=== PATIENT | male | born 1970 | race Two or more races ===

== ENCOUNTER 2020-08-19 13:19 | Outpatient (REF) | payer OTHER, SELFPAY ==
--- NOTE | 2020-08-19 13:27 | US_ITS ---
EXAMINATION: US VENOUS ULTRASOUND WITH DOPPLER LOWER EXTREMITY, LEFT CLINICAL INFORMATION: Left leg pain and swelling. Evaluate for DVT. COMPARISON: None TECHNIQUE: Ultrasound of the deep veins is performed from the hip to the calf with compression sonography and color and pulse Doppler assessment. Spectral analysis with color-flow imaging is performed. FINDINGS: There is normal venous compression and respiratory variation and augmented flow. The visualized common femoral vein, superficial femoral vein, profunda femoral vein, popliteal vein, and the trifurcation region shows no evidence of deep venous thrombosis. There is no significant popliteal fossa cyst. If the patient's symptoms persist, followup ultrasound in 5 days 7 days might be of value to exclude proximal propagation from a non-visualized calf vein. US/US venous duplex LE LT IMPRESSION: No DVT demonstrated in the left lower extremity.
== END 2020-08-19 13:20 | disposition home or self-care (01) ==
LOC: HO.HMGCX 13:19
DX: R60.0 Localized edema (principal); M79.605 Pain in left leg
CPT/HCPCS: 93971

== ENCOUNTER 2021-01-03 14:19 | Outpatient (REF) | payer OTHER, SELFPAY ==
--- NOTE | ~2021-01-03 | XR_ITS ---
EXAMINATION: XR CHEST CLINICAL INFORMATION: CHF COMPARISON: 09/22/2019 TECHNIQUE: 2 views of the chest were obtained. FINDINGS: The lungs are well expanded. There is no focal consolidation, edema, or effusion. No pneumothorax. The cardiomediastinal silhouette is prominent. No acute osseous abnormality. XR/XR chest 2V IMPRESSION: Prominent cardiac silhouette. Clear lungs.
[2021-01-03 16:02] LABS: MANUAL DIFF FLAG NO
[2021-01-03 16:08] LABS: Basophils Percent Auto 0.5 % (0-2); Eosinophils Absolute Auto 0.4 X10*3/uL (0.0-0.4); Hematocrit 49.4 % (42-52); Hemoglobin 16.5 g/dl (14.0-18.0); Imm Gran Abs Auto 0.02 X10*3/uL (0.00-0.03); Imm Gran Pct Auto 0.3 % (0.0-0.4); Lymphocytes Absolute Auto 1.7 X10*3/uL (1.2-4.9); Mean Corpuscular HGB Conc 33.4 g/dl (31.0-36.0); Mean Corpuscular Volume 92.9 fL (80-98); Mean Platelet Volume 11.2 fL (9.4-12.4); Monocytes Absolute Auto 0.6 X10*3/uL (0.1-1.2); Monocytes Percent Auto 8.2 % (2-11); Neutrophils Absolute Auto 4.6 X10*3/uL (2.0-8.3); Platelet Count 247 X10*3/uL (160-400); Red Blood Count 5.32 X10*6/uL (4.60-5.80); Red Cell Distribution Width 13.2 % (11.0-16.0); White Blood Count 7.3 X10*3/uL (4.8-10.8)
[2021-01-03 16:16] LABS: Glucose Urine UA NEG (NEG); Leukocyte Esterase Urine NEG (NEG); Nitrite Urine NEG (NEG); PH 6.5 (5.0-8.0); Specific Gravity - Urine 1.025 (1.005-1.025); Urine Blood NEG (NEG); Urine Ketones NEG (NEG); Urine Protein 2+ MG/DL (NEG-TRACE)
[2021-01-03 16:21] LABS: Appearance Urine CLEAR; Color Urine AMBER
[2021-01-03 16:28] LABS: Alanine Aminotransferase 22 U/L (0-40); Albumin Level 3.2 g/dL (3.5-5.0); Alkaline Phosphatase 95 U/L (39-117); Anion Gap 11 (12-20); Aspartate Amino Transferase 17 U/L (5-37); B Type Natriuretic Peptide 893 pg/mL (<100); Bilirubin Total 2.1 mg/dL (0.0-1.0); Blood Urea Nitrogen 25 mg/dL (9-16); Calcium 8.5 mg/dL (8.4-10.2); Carbon Dioxide 32 mmol/L (22-29); Chloride 100 mmol/L (96-108); Cholesterol 162 mg/dL; Estimated Glomerular Filt Rate 59; Glucose Random 108 mg/dL (60-115); Potassium 3.7 mmol/L (3.3-5.1); Sodium 139 mmol/L (135-145); Total Protein 5.8 g/dL (6.5-8.0)
[2021-01-03 16:33] LABS: Uric Acid 11.6 mg/dL (3.4-7.0)
[2021-01-03 16:47] LABS: Free T4 (Free Thyroxine) 0.92 ng/dL (0.71-1.85); Prostate Specific Antigen 0.35 ng/mL (<0.05-4.0)
[2021-01-03 18:21] LABS: RBC Urine 0-2 /HPF (0); Squamous Epithelial Cell Urine TRACE /LPF
[2021-01-04 13:01] LABS: CT PCR NOT DETECTED (Not Detect.); NG PCR NOT DETECTED (Not Detect.)
== END 2021-01-03 14:20 | disposition home or self-care (01) ==
LOC: HO.LAB 14:19
PROVIDERS: PCP Internal Medicine; Visit Provider Internal Medicine
DX: I10 Essential (primary) hypertension (principal); R31.9 Hematuria, unspecified; I50.9 Heart failure, unspecified; M10.9 Gout, unspecified; I48.91 Unspecified atrial fibrillation; Z12.5 Encounter for screening for malignant neoplasm of prostate
CPT/HCPCS: 71046; 80053; 81001; 82465; 83880; 84153; 84439; 84443; 84550; 85025; 87086; 87491; 87591

== ENCOUNTER → 2021-02-25 08:33 | Outpatient (REF) | payer OTHER, SELFPAY ==
--- NOTE | 2021-02-25 08:30 | CA_ITS ---
Transthoracic Echocardiogram Patient (Last, First, Middle): Dom Yoder, Gender: Male Date of : 1970 Age: 50 Procedure Date: 02/25/2021 Procedure Type: Transthoracic Echocardiogram Location: OP Height: 167.64 cm Weight: 97.98 kg BSA: 2.07 m2 Heart Rate: bpm BP: 148 / 110 mmHg Barrel Waterer: ADRIANA Referring MD: Mj Linder MD Symptoms: I42.9 CMP Study Quality: Fair ECG Rhythm: Sinus Conclusions: - The left ventricular systolic function is severely decreased. The visually estimated ejection fraction is between 10-15%. - Evidence suggests grade II (moderate) diastolic dysfunction. - There is moderate mitral valve regurgitation. - There is mild to moderate tricuspid valve regurgitation. - Moderate pulmonary hypertension is present. - The inferior vena cava is dilated and does not collapse with inspiration. Findings Left Ventricle Severely increased left ventricular cavity size. There is normal left ventricular wall thickness. The left ventricular systolic function is severely decreased. The visually estimated ejection fraction is between 10 15%. The calculated ejection fraction is 15% by biplane method. E/E prime ratio is >15, consistent with elevated filling pressures. Evidence suggests grade II (moderate) diastolic dysfunction. Right Ventricle Normal right ventricular cavity size and systolic function. Atria Both atria are normal in size. Aortic Valve There is a normal trileaflet aortic valve. There is no aortic valve stenosis. There is no aortic valve regurgitation. Mitral Valve There is mild mitral annular calcification. There is moderate mitral valve regurgitation. There is no mitral valve stenosis. Pulmonic Valve The pulmonic valve was not well visualized. Tricuspid Valve Normal tricuspid valve structure. There is mild to moderate tricuspid valve regurgitation. The right ventricular systolic pressure is 60 mmHg. Moderate pulmonary hypertension is present. Great Vessels There is mild dilatation of the ascending aorta measuring 3.70 cm. Venous The inferior vena cava is dilated and does not collapse with inspiration. Pericardium/Pleural There is no evidence of pericardial effusion. Prior Study Comparison Changes noted compared to prior study dated: 08/28/2018. LVEF further diminished. Progression of valvular dysfunction. Measurements 2D Linear Measurements IVSd: 0.75 0.6-0.9/0.6-1.0 cm LVIDd: 6.97 3.9-5.3/4.2-5.9 cm LVIDd Index: 3.37 2.4-3.2/2.2-3.1 cm/m2 LVIDs: 5.67 2.0-3.6 cm LVPWd: 0.73 0.7-1.1 cm Ao Root: 3.90 2.1-3.5 cm LA Diam: 3.20 2.7-3.8/3.0-4.0 cm LAIDs Index: 1.55 1.5-2.3 cm/m2 LV Mass: 276.00 67-162/88-224 g LV Mass Index: 133.33 43-95/49-115 g/m2 LVOT Diam: 2.20 3.0+(-)1.3 cm 2D Systolic Function EF 4C: 14.00 >55% EF 2C: 15.50 >55% EF BiP: 14.50 >55% Mitral Valve MV Pk E: 0.90 MV PK A: 0.44 MV Decel Time: 119.00 E/A: 2.10 E'Lateral: 8.33 E'Medial: 2.85 E/E' Med: 31.70 E/E' Lat: 10.90 PHT: 35.00 MVA PHT: 6.29 Decel [place]: 7.61 Aortic Valve AoV Pk Sanjay: 0.83 AoV Mn Sanjay: 0.65 AoV VTI: 0.13 AoV Pk Grad: 3.00 Aov Mn Grad: 2.00 PAU Cont.VTI: 2.13 LVOT LVOT Pk Sanjay: 0.54 LVOT Mn Sanjay: 0.36 LVOT VTI: 0.07 LVOT Pk Grad: 1.00 LVOT Mn Grad: 1.00 LVOT Diam: 2.20 LVOT Area: 3.80 Diastolic Function MV Pk E: 0.90 MV Pk A: 0.44 E/A: 2.10 E'Medial: 2.85 E/E' Med: 31.70 E' Laterial: 8.33 E/E' Lat: 10.90 Tricuspid Valve TR Pk Sanjay: 3.35 TR Pk Grad: 45.00 RA Press: 15.00 RVSP: 60.00 Great Vessels Aorta Ao Root-2D: 3.90 2.0-3.7 cm Ao Asc: 3.70 2.1-3.4 cm Ao Arch: 3.30 Pulmonary Valve PV Pk Sanjay: 0.66 Peak PV Grad: 2.00 Updated in Other Vendor System with Status of Final Chao Mcdonough MD electronically signed on 02/27/2021 1:16:38 PM with status of Final
== END ==
LOC: HO.CARD 08:33
PROVIDERS: Visit Provider Internal Medicine
DX: I42.9 Cardiomyopathy, unspecified (principal)
CPT/HCPCS: 93306

== ENCOUNTER 2021-03-24 09:04 | Outpatient (REF) | payer OTHER, SELFPAY ==
[2021-03-24 10:56] LABS: B Type Natriuretic Peptide 986 pg/mL (<100)
[2021-03-24 11:04] LABS: Alanine Aminotransferase 18 U/L (0-40); Albumin Level 3.8 g/dL (3.5-5.0); Alkaline Phosphatase 125 U/L (39-117); Anion Gap 13 (12-20); Aspartate Amino Transferase 17 U/L (5-37); Bilirubin Total 1.7 mg/dL (0.0-1.0); Blood Urea Nitrogen 20 mg/dL (9-16); C Reactive Protein 0.92 mg/dL (< or = 0.50); Calcium 9.2 mg/dL (8.4-10.2); Carbon Dioxide 24 mmol/L (22-29); Chloride 106 mmol/L (96-108); Estimated Glomerular Filt Rate > 60; Glucose Random 100 mg/dL (60-115); Potassium 4.1 mmol/L (3.3-5.1); Sodium 139 mmol/L (135-145); Total Protein 6.8 g/dL (6.5-8.0)
[2021-03-24 11:19] LABS: Uric Acid 9.9 mg/dL (3.4-7.0)
== END 2021-03-24 09:05 | disposition home or self-care (01) ==
LOC: HO.LAB 09:04
PROVIDERS: PCP Internal Medicine; Visit Provider Internal Medicine
DX: I10 Essential (primary) hypertension (principal); I42.9 Cardiomyopathy, unspecified
CPT/HCPCS: 36415; 80053; 83880; 84550; 86140

== ENCOUNTER 2021-04-26 16:20 | Inpatient (IN) | payer OTHER, SELFPAY ==
--- NOTE | ~2021-04-26 | XR_ITS ---
EXAMINATION: XR CHEST CLINICAL INFORMATION: Dyspnea COMPARISON: Previous chest x-ray most recent December 2020 TECHNIQUE: Frontal view of the chest was obtained. FINDINGS: The cardiac silhouette is enlarged but stable. Hilar and mediastinal contours are unremarkable. The lungs are clear. There is no pleural effusion. There are degenerative changes of the spine. XR/XR chest 1V IMPRESSION: Stable enlargement of the cardiac silhouette. No evidence for acute disease in the chest.
[2021-04-26 16:22] VITALS: BP 149/96; PULSE 93; RESP 18; O2SAT 94; BMI 36.1
--- NOTE | 2021-04-26 16:29 | ECG_ITS ---
Test Reason : DYSPNEA Blood Pressure : / mmHG Vent. Rate : 085 BPM Atrial Rate : 085 BPM P-R Int : 162 ms QRS Dur : 100 ms QT Int : 348 ms P-R-T Axes : 058 -37 147 degrees QTc Int : 414 ms Normal sinus rhythm Left axis deviation Left ventricular hypertrophy with repolizeration abnormality. Abnormal ECG No previous ECGs available Referred By: Generic ED Physician Electronically Signed By:EMMA SPARROW
[2021-04-26 16:45] LABS: MANUAL DIFF FLAG NO
[2021-04-26 16:49] LABS: Basophils Percent Auto 0.4 % (0-2); Eosinophils Absolute Auto 0.3 X10*3/uL (0.0-0.4); Eosinophils Percent Auto 4.2 % (0-4); Hematocrit 44.8 % (42-52); Hemoglobin 15.2 g/dl (14.0-18.0); Imm Gran Abs Auto 0.02 X10*3/uL (0.00-0.03); Imm Gran Pct Auto 0.3 % (0.0-0.4); Lymphocytes Absolute Auto 1.5 X10*3/uL (1.2-4.9); Lymphocytes Percent Auto 20.5 % (20-40); Mean Corpuscular HGB Conc 33.9 g/dl (31.0-36.0); Mean Corpuscular Hemoglobin 30.8 pg (27.0-33.0); Mean Corpuscular Volume 90.7 fL (80-98); Mean Platelet Volume 10.9 fL (9.4-12.4); Monocytes Absolute Auto 0.5 X10*3/uL (0.1-1.2); Monocytes Percent Auto 7.5 % (2-11); Neutrophils Absolute Auto 4.8 X10*3/uL (2.0-8.3); Neutrophils Percent Auto 67.1 % (45-73); Platelet Count 217 X10*3/uL (160-400); Red Blood Count 4.94 X10*6/uL (4.60-5.80); White Blood Count 7.2 X10*3/uL (4.8-10.8)
[2021-04-26 17:10] LABS: Anion Gap 14 (12-20); Blood Urea Nitrogen 37 mg/dL (9-16); Calcium 9.1 mg/dL (8.4-10.2); Carbon Dioxide 22 mmol/L (22-29); Chloride 109 mmol/L (96-108); Creatinine Clr Calc Pharmacy 59.1; Estimated Glomerular Filt Rate 44; Glucose Random 114 mg/dL (60-115); Potassium 4.1 mmol/L (3.3-5.1); Sodium 141 mmol/L (135-145)
[2021-04-26 17:16] LABS: B Type Natriuretic Peptide 3442 pg/mL (<100); Troponin-I High Sensitivity 12.1 ng/L (<3.5-35.0)
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
--- NOTE | 2021-04-26 21:03 | PHA.MEDREC ---
Pharmacy Consult ? Medication Reconciliation Pharmacy has completed the medication reconciliation.
[2021-04-26 22:13] LABS: Alanine Aminotransferase 16 U/L (0-40); Albumin Level 3.5 g/dL (3.5-5.0); Alkaline Phosphatase 119 U/L (39-117); Aspartate Amino Transferase 19 U/L (5-37); Bilirubin Direct 1.6 mg/dL (0.0-0.5); Bilirubin Total 2.9 mg/dL (0.0-1.0); Total Protein 6.3 g/dL (6.5-8.0)
[2021-04-26 22:45] VITALS: BP 143/103; PULSE 75; RESP 16; O2SAT 97
[2021-04-26] MEDS: Furosemide 100 MG/10 ML VIAL 60 MG IVPUSH (22:57)
[2021-04-26 23:33] LABS: COVID-19 Test Negative (Negative)
[2021-04-26 23:36] LABS: Digoxin 0.6 ng/mL (0.8-2.0)
[2021-04-27] VITALS (9 sets, daily range): BP systolic 123–155; BP diastolic 78–99; PULSE 63–92; RESP 16–20; TEMP 36–36.8; O2SAT 94–97; BMI 35.2
--- NOTE | 2021-04-27 00:37 | PM.IMHP ---
History of Present Illness Date of Service: 04/26/21 Chief Complaint: Shortness of breath and leg swelling This is a 50-year-old male with past medical history of heart failure with an ejection fraction of 10%, and history of gout who presents to the hospital for leg swelling and shortness of breath. Patient was seen by his PCP today who sent him to the ED. Patient reports that his leg swelling started about 3-4 days ago, associated with shortness of breath, no cough, no sputum production, no fever or chills, no chest pain. he has some orthopnea with no PND. Reports no sick contacts or recent travel. He has some palpitations that are infrequent. No headache, change in vision, no abdominal pain nausea or vomiting, no diarrhea constipation, no urinary symptoms and no numbness tingling or weakness. Also noted to have gained 8 lb within few weeks. Patient reports compliance with his Lasix of 40 mg daily, he reports compliance with low-sodium diet. On arrival to the ED patient hemodynamically stable with a slightly elevated blood pressure otherwise no significant abnormality Labs unremarkable except for chloride of 109, BUN of 37, creatinine of 1.65 with a baseline around 1.1, total bili of 2.9, with direct bili of 1.6 (chronically elevated), BNP of 3442, digoxin level of 0.6 Chest x-ray shows stable enlargement of the cardiac silhouette with no evidence for acute disease Past medical history as below and confirmed with patient Review of Systems Review of Systems: Yes all other systems are reviewed and are negative [facility] Medical History Gout Heart failure Social History Use of substances other than those prescribed or required for medical reasons: Yes Substance Use Type: Crack/Cocaine Substance Use Frequency: Weekly Advance Directives: No Advance Directives Information Provided: No Meds Allergies Allergy/AdvReac Type Severity Reaction Status Date / Time codeine Allergy Unknown NAUSEA,VOMI Verified 04/26/21 16:22 [From TYLENOL-CODEINE #3] TING acetaminophen AdvReac Unknown nausea and Verified 04/26/21 16:22 [Tylenol-Codeine] vomiting Active Medications: Current Medications Generic Name Dose Route Start Last Admin Trade Name Freq PRN Reason Stop Dose Admin Pharmacy Consult 1 each 04/26/21 20:51 Consult Rx Perform Med Rec MISCELLANE ONCE PRN Consult order Home Medications Medication Instructions Recorded Confirmed Last Taken Type allopurinol 1 tab PO DAILY 04/26/21 04/26/21 04/26/21 History carvedilol 1 tab PO BID 04/26/21 04/26/21 04/26/21 History digoxin 1 tab PO DAILY 04/26/21 04/26/21 04/26/21 History furosemide 1 tab PO DAILY 04/26/21 04/26/21 04/26/21 History sacubitril-valsartan [Entresto] 1 tab PO BID 04/26/21 04/26/21 04/26/21 History Physical Exam Vital Signs and Narrative: Vital Signs: Last Vital Signs Pulse 75 04/26/21 22:45 Resp 16 04/26/21 22:45 BP 143/103 H 04/26/21 22:45 Pulse Ox 97 04/26/21 22:45 Body Mass Index 36.1 Const: General: cooperative and no acute distress Orientation/consciousness: patient oriented x3 Eyes: General: appearance normal, both eyes and all related structures Resp: Effort & Inspection: normal respiratory effort and able to speak in complete sentences Cardio: Rate: regular rate Rhythm: regular rhythm GI: Palpation (GI): Soft to palpation Auscultation: normal bowel sounds Skin: General skin exam: no rashes or lesions noted Neuro: General: patient oriented x3 Cognition (Neuro): normal cognition Extrem: Other: 3+ pitting edema bilaterally General: Yes normal to inspection Results Labs CBC and Chem 7: 04/26/21 16:39 04/26/21 16:39 Labs: Laboratory Results - last 24 hr 04/26/21 04/26/21 04/26/21 16:39 16:39 16:39 MCV 90.7 MCH 30.8 MCHC 33.9 RDW 14.0 Plt Count 217 MPV 10.9 Immature Gran % (Auto) 0.3 Neut % (Auto) 67.1 Lymph % (Auto) 20.5 [place] % (Auto) 7.5 Eos % (Auto) 4.2 H Baso % (Auto) 0.4 Lymph # (Auto) 1.5 [place] # (Auto) 0.5 Eos # (Auto) 0.3 Baso # (Auto) 0.0 Abs Immat Gran (auto) 0.02 Absolute Neuts (auto) 4.8 Absolute Nucleated RBC 0.000 Nucleated RBC % (auto) 0.0 Anion Gap 14 Estim Creat Clear Calc 59.1 Estimated GFR 44 Random Glucose 114 Calcium 9.1 Total Bilirubin 2.9 H Direct Bilirubin 1.6 H AST 19 ALT 16 Alkaline Phosphatase 119 H Troponin I High Sens 12.1 B-Natriuretic Peptide 3442 H Total Protein 6.3 L Albumin 3.5 Digoxin COVID-19 (SRINI) COVID-19 Clin Com 04/26/21 04/26/21 22:56 22:56 MCV MCH MCHC RDW Plt Count MPV Immature Gran % (Auto) Neut % (Auto) Lymph % (Auto) [place] % (Auto) Eos % (Auto) Baso % (Auto) Lymph # (Auto) [place] # (Auto) Eos # (Auto) Baso # (Auto) Abs Immat Gran (auto) Absolute Neuts (auto) Absolute Nucleated RBC Nucleated RBC % (auto) Anion Gap Estim Creat Clear Calc Estimated GFR Random Glucose Calcium Total Bilirubin Direct Bilirubin AST ALT Alkaline Phosphatase Troponin I High Sens B-Natriuretic Peptide Total Protein Albumin Digoxin 0.6 L COVID-19 (SRINI) Negative COVID-19 Clin Com See Note Imaging Radiologist's Impressions: Impressions Chest X-Ray 04/26/21 16:29 IMPRESSION: Stable enlargement of the cardiac silhouette. No evidence for acute disease in the chest. Assessment and Plan (1) Acute congestive heart failure with left ventricular diastolic dysfunction: Status: Acute (2) CYNTHIA (acute kidney injury): Status: Acute This is a 50-year-old male with past medical history of heart failure presents to hospital with lower extremity edema as well as dyspnea # acute CHF exacerbation - has a history of low ejection fraction of 10% seen on echo done in January of 2021 - has dyspnea, orthopnea, lower extremity edema, and elevated BNP - troponin at significantly elevated and he has no chest pain with no EKG changes - will start him on IV Lasix 40 b.i.d., daily weight, strict I&O, low-sodium diet - cardiology consulted # CYNTHIA - most likely secondary to heart failure - start on Lasix - follow BMP # hypertension - slightly elevated - continue carvedilol And Entresto # gout - given CYNTHIA will hold off on allopurinol DVT prophylaxis: lovenox Quality Stroke Does the patient have a stroke diagnosis?: No VTE Prior VTE?: No VTE Risk Level:: Medical - moderate - high VTE Device Contraindication: Treatment Not Indicated VTE Drug Contraindication: N/A - Med Ordered
[2021-04-27] MEDS: Enoxaparin Sodium 40 MG/0.4 ML SYRINGE SUBCUT ×2 (02:51→21:22)
[2021-04-27] MEDS: Furosemide 40 MG/4 ML VIAL IVPUSH ×2 (02:51→13:55)
[2021-04-27] MEDS: 0.9 % Sodium Chloride Flush 3 ML SYRINGE IVFLUSH ×4 (02:51→23:52)
--- NOTE | 2021-04-27 06:13 | PC.NURSE ---
LATE ENTRY: Hospital-wide system downtime between 3am-6am. During this time, patient ambulated with slow steady gait to ED, voided 2,000ml urine. Patient able to make needs known and use call rodriges. Requested and given ham sandwich and racquel luciano. Awaiting admission bed. Will continue to monitor.
[2021-04-27 06:22] LABS: MANUAL DIFF FLAG NO
[2021-04-27 06:28] LABS: Appearance Urine CLEAR; Color Urine YELLOW; Glucose Urine UA NEG (NEG); Leukocyte Esterase Urine NEG (NEG); Nitrite Urine NEG (NEG); Urine Blood NEG (NEG); Urine Ketones NEG (NEG); Urine Protein TRACE MG/DL (NEG-TRACE)
[2021-04-27 06:34] LABS: Basophils Percent Auto 0.4 % (0-2); Eosinophils Absolute Auto 0.5 X10*3/uL (0.0-0.4); Eosinophils Percent Auto 6.7 % (0-4); Hematocrit 48.3 % (42-52); Hemoglobin 15.7 g/dl (14.0-18.0); Imm Gran Abs Auto 0.03 X10*3/uL (0.00-0.03); Imm Gran Pct Auto 0.4 % (0.0-0.4); Lymphocytes Absolute Auto 1.3 X10*3/uL (1.2-4.9); Lymphocytes Percent Auto 17.3 % (20-40); Mean Corpuscular HGB Conc 32.5 g/dl (31.0-36.0); Mean Corpuscular Volume 92.2 fL (80-98); Mean Platelet Volume 11.2 fL (9.4-12.4); Monocytes Absolute Auto 0.5 X10*3/uL (0.1-1.2); Monocytes Percent Auto 7.1 % (2-11); Neutrophils Percent Auto 68.1 % (45-73); Platelet Count 232 X10*3/uL (160-400); Red Blood Count 5.24 X10*6/uL (4.60-5.80); Red Cell Distribution Width 13.9 % (11.0-16.0); White Blood Count 7.3 X10*3/uL (4.8-10.8)
[2021-04-27 06:57] LABS: Anion Gap 13 (12-20); Blood Urea Nitrogen 36 mg/dL (9-16); Calcium 9.5 mg/dL (8.4-10.2); Carbon Dioxide 31 mmol/L (22-29); Chloride 102 mmol/L (96-108); Creatinine Clr Calc Pharmacy 61.7; Estimated Glomerular Filt Rate 46; Glucose Random 111 mg/dL (60-115); Potassium 3.8 mmol/L (3.3-5.1); Sodium 142 mmol/L (135-145)
--- NOTE | 2021-04-27 09:14 | MHC.CM.PN ---
CM met with Patient at bedside. Patient lives in a duplex with his and he is functionally independent and working. Home is the goal for dc and CM has initiated and will follow for dc planning. PCP is Dr. Mj Linder.
[2021-04-27] MEDS: carvediloL 12.5 MG TABLET PO ×2 (09:35→21:22)
[2021-04-27] MEDS: Sacubitril/Valsartan 49/51 1 TAB TABLET PO ×2 (09:35→21:22)
--- NOTE | 2021-04-27 10:32 | P.CONCA_ITS ---
History of Present Illness History of Present Illness Date of Service: 04/27/21 Consult reason: congestive heart failure Chief complaint: CHF Exacerbation, Leticia Narrative: This is a cardiology consultation regarding congestive heart failure. He has the known ejection fraction of about 10%. He has been admitted to the hospital with leg swelling and shortness of breath. He was apparently seen by his PCP sent him to the ER. He started having some some swelling in his legs few days back. He has also been having shortness of breath. However he states that his shortness of breath is actually chronic and not much change recently. No anginal-type symptoms or palpitations or syncopal episodes. He is on a reasonable medical regimen at home including Coreg, Entresto, Lasix and digoxin and he states that he actually takes all his medications without any issues. Unfortunately, he does do drugs. He has history of cocaine use and he also binge drinks over the weekend. Review of Systems Review of Systems: Yes all other systems are reviewed and are negative Cardiovascular: Cardiovascular: Reports as per HPI, Reports no additional cardiovascular complaints, Denies acrocyanosis, Denies cool extremities, Denies painful fingertips, Denies chest pain, Denies chest pain at rest, Denies diaphoresis, Denies syncope, Denies irregular heart rhythm, Denies claudication, Reports leg edema, Denies lightheadedness, Denies palpitations and Reports dyspnea Respiratory: Respiratory: Reports dyspnea Neurologic: Denies syncope Endocrine: Endocrine: Denies palpitations PMF Past Medical History Medical History Gout Heart failure Family History Pertinent family history: Mother and father have diabetes. Social History Social History Household Members: Spouse Housing: House Do you presently have visiting nurse or other home services: No Patient Tobacco Use Status: Former Tobacco user Use of substances other than those prescribed or required for medical reasons: No Substance Use Type: Crack/Cocaine Substance Use Frequency: Weekly Have you been hit, kicked, punched, or otherwise hurt by someone within the past year? If so, by whom?: No Do you feel safe in your current relationship?: Yes Is there a partner from a previous relationship who is making you feel unsafe now?: No Are you made to feel afraid or neglected: No Advance Directives: No Advance Directives Information Provided: No Do you have thoughts of harming others: None Recently lost weight without trying: No Nutrition Risks: No Nutritional Risk service: No Current occupational status: employed Meds Allergies Allergy/AdvReac Type Severity Reaction Status Date / Time codeine Allergy Unknown NAUSEA,VOMI Verified 04/26/21 16:22 [From TYLENOL-CODEINE #3] TING acetaminophen AdvReac Unknown nausea and Verified 04/26/21 16:22 [Tylenol-Codeine] vomiting Active Medications: Current Medications Generic Name Dose Route Start Last Admin Trade Name Freq PRN Reason Stop Dose Admin Acetaminophen 650 mg 04/27/21 01:26 Acetaminophen 325 Mg Tablet PO Q6H PRN Pain, Mild (Pain Scale 1-3) Carvedilol 12.5 mg 04/27/21 01:26 04/27/21 09:35 Carvedilol 12.5 Mg Tablet PO 12.5 mg BID [facility] Administration Protocol Docusate Sodium 100 mg 04/27/21 01:26 Docusate Sodium 100 Mg Capsule PO DAILY PRN Constipation Enoxaparin Sodium 40 mg 04/27/21 01:26 04/27/21 02:51 Enoxaparin Sodium 40 Mg/0.4 Ml Syringe SUBCUT 40 mg BEDTIME [facility]A Administration Furosemide 40 mg 04/27/21 02:00 04/27/21 02:51 Furosemide 40 Mg/4 Ml Vial IVPUSH 40 mg Q12H [facility] Administration Protocol Ondansetron HCl 4 mg 04/27/21 01:26 Ondansetron Hcl 4 Mg/2 Ml Vial IVPUSH Q8H PRN Nausea and Vomiting Pharmacy Consult 1 each 04/26/21 20:51 Consult Rx Perform Med Rec MISCELLANE ONCE PRN Consult order Sacubitril/Valsartan 1 tab 04/27/21 01:26 04/27/21 09:35 Sacubitril/Valsartan 49/51 1 Tab Tablet PO 1 tab BID [facility] Administration Protocol Sodium Chloride 3 ml 04/27/21 01:26 04/27/21 09:35 0.9 % Sodium Chloride Flush 3 Ml Syringe IVFLUSH 3 ml QSHIFT [facility]A Administration Home Medications Medication Instructions Recorded Confirmed Last Taken Type allopurinol 300 mg tablet 1 tab PO DAILY 04/26/21 04/26/21 04/26/21 History carvedilol 12.5 mg tablet 1 tab PO BID 04/26/21 04/26/21 04/26/21 History digoxin 250 mcg (0.25 mg) tablet 1 tab PO DAILY 04/26/21 04/26/21 04/26/21 History furosemide 40 mg tablet 1 tab PO DAILY 04/26/21 04/26/21 04/26/21 History sacubitril 49 mg-valsartan 51 mg 1 tab PO BID 04/26/21 04/26/21 04/26/21 History tablet (Entresto) Physical Exam Vital Signs: Vital Signs: Last Vital Signs Temp 97.6 F 04/27/21 07:49 Pulse 66 04/27/21 09:35 Resp 18 04/27/21 07:49 BP 155/99 H 04/27/21 09:35 Pulse Ox 97 04/27/21 07:49 Body Mass Index 35.2 Const: General: cooperative and no acute distress HENMT: Other: Unremarkable Neck: Neck: Yes normal visual inspection Chest: Chest palpation & inspection: normal inspection of the chest Resp: Auscultation: clear to auscultation bilaterally, no crackles and no wheezes Cardio: Jugular venous distension: no JVD Palpation: normal PMI Heart sounds: S1 normal heart sound present, S2 normal heart sound present, no gallops, no murmurs and no rubs GI: Palpation (GI): Soft to palpation Back/Spine/Pelvis: Other: unremarkable Skin: General skin exam: no rashes or lesions noted Neuro: Cranial nerves: Yes Other cranial nerve findings present Extrem: General: Yes edema (1-2+ bilateral edema) Psych: Mental Status: other Results Labs and Meds Result diagrams: 04/27/21 05:33 04/27/21 05:53 Lab results: Laboratory Results - last 24 hr 04/26/21 04/26/21 04/26/21 16:39 16:39 16:39 WBC 7.2 RBC 4.94 Hgb 15.2 Hct 44.8 MCV 90.7 MCH 30.8 MCHC 33.9 RDW 14.0 Plt Count 217 MPV 10.9 Immature Gran % (Auto) 0.3 Neut % (Auto) 67.1 Lymph % (Auto) 20.5 [place] % (Auto) 7.5 Eos % (Auto) 4.2 H Baso % (Auto) 0.4 Lymph # (Auto) 1.5 [place] # (Auto) 0.5 Eos # (Auto) 0.3 Baso # (Auto) 0.0 Abs Immat Gran (auto) 0.02 Absolute Neuts (auto) 4.8 Absolute Nucleated RBC 0.000 Nucleated RBC % (auto) 0.0 Sodium 141 Potassium 4.1 Chloride 109 H Carbon Dioxide 22 Anion Gap 14 BUN 37 H D Creatinine 1.65 H Estim Creat Clear Calc 59.1 Estimated GFR 44 Random Glucose 114 Calcium 9.1 Total Bilirubin 2.9 H Direct Bilirubin 1.6 H AST 19 ALT 16 Alkaline Phosphatase 119 H Troponin I High Sens 12.1 B-Natriuretic Peptide 3442 H Total Protein 6.3 L Albumin 3.5 Urine Color Urine Appearance Urine pH Ur Specific [place] Urine Protein Urine Glucose (UA) Urine Ketones Urine Blood Urine Nitrite Ur Leukocyte Esterase Digoxin COVID-19 ([facility]INI) COVID-19 Clin Com 04/26/21 04/26/21 04/27/21 22:56 22:56 03:04 WBC RBC Hgb Hct MCV MCH MCHC RDW Plt Count MPV Immature Gran % (Auto) Neut % (Auto) Lymph % (Auto) [place] % (Auto) Eos % (Auto) Baso % (Auto) Lymph # (Auto) [place] # (Auto) Eos # (Auto) Baso # (Auto) Abs Immat Gran (auto) Absolute Neuts (auto) Absolute Nucleated RBC Nucleated RBC % (auto) Sodium Potassium Chloride Carbon Dioxide Anion Gap BUN Creatinine Estim Creat Clear Calc Estimated GFR Random Glucose Calcium Total Bilirubin Direct Bilirubin AST ALT Alkaline Phosphatase Troponin I High Sens B-Natriuretic Peptide Total Protein Albumin Urine Color YELLOW Urine Appearance CLEAR Urine pH 6.0 Ur Specific [place] 1.010 Urine Protein TRACE Urine Glucose (UA) NEG Urine Ketones NEG Urine Blood NEG Urine Nitrite NEG Ur Leukocyte Esterase NEG Digoxin 0.6 L COVID-19 (SRINI) Negative COVID-19 Clin Com See Note 04/27/21 04/27/21 05:33 05:53 WBC 7.3 RBC 5.24 Hgb 15.7 Hct 48.3 MCV 92.2 MCH 30.0 MCHC 32.5 RDW 13.9 Plt Count 232 MPV 11.2 Immature Gran % (Auto) 0.4 Neut % (Auto) 68.1 Lymph % (Auto) 17.3 L [place] % (Auto) 7.1 Eos % (Auto) 6.7 H Baso % (Auto) 0.4 Lymph # (Auto) 1.3 [place] # (Auto) 0.5 Eos # (Auto) 0.5 H Baso # (Auto) 0.0 Abs Immat Gran (auto) 0.03 Absolute Neuts (auto) 5.0 Absolute Nucleated RBC 0.000 Nucleated RBC % (auto) 0.0 Sodium 142 Potassium 3.8 Chloride 102 Carbon Dioxide 31 H Anion Gap 13 BUN 36 H Creatinine 1.58 H Estim Creat Clear Calc 61.7 Estimated GFR 46 Random Glucose 111 Calcium 9.5 Total Bilirubin Direct Bilirubin AST ALT Alkaline Phosphatase Troponin I High Sens B-Natriuretic Peptide Total Protein Albumin Urine Color Urine Appearance Urine pH Ur Specific [place] Urine Protein Urine Glucose (UA) Urine Ketones Urine Blood Urine Nitrite Ur Leukocyte Esterase Digoxin COVID-19 ([facility]INI) COVID-19 Clin Com ECG Interpretation: EKG with sinus rhythm, 85/Min; left ventricular hypertrophy with T inversions likely from hypertension. Imaging Radiologist's impression: Impressions Chest X-Ray 04/26/21 16:29 IMPRESSION: Stable enlargement of the cardiac silhouette. No evidence for acute disease in the chest. Assessment and Plan (1) Acute on chronic systolic and diastolic heart failure, NYHA class 3: Status: Acute Based on the last echocardiogram from January 2021, LVEF 10-15%. There was moderate diastolic dysfunction. There was also moderate mitral regurgitation and moderate pulmonary hypertension. Dilated non collapsing IVC. Echocardiogram from [facility] in 2018 also showed LVEF of 15-20%. Cardiac catheterization from 2018 shows mild LAD disease but otherwise unremarkable. Etiology might be from cocaine use, alcohol, hypertension some combination. I counseled him about drug use and specifically asked symptoms stain from cocaine. Also needs to cut back and stop alcohol use. IV diuretics. Continue Coreg. On Entresto on already has renal dysfunction. Can keep on the current dose. May add Amlodipine. If compliant in office, then possibly Aldactone. Will follow. Procedures Date of Service Date of Service: 04/27/21
[2021-04-27] MEDS: amLODIPine Besylate 2.5 MG TABLET PO (11:44)
--- NOTE | 2021-04-27 15:52 | HO.PM.IMPN ---
Subjective Subjective Date of Service: 04/27/21 Interval History: The patient was seen and evaluated this morning Sitting up, feels comfortable overall Still feeling dyspnea on exertion and swelling in his legs Denies any fever, chills or chest pain No reported other overnight events. Systemic review: No fever, chills or weakness No chest pain, palpitation Dyspnea on exertion and edema No abdominal pain, nausea or vomiting No urinary symptoms No wounds Physical Exam Vital Signs: Vital Signs: Last Vital Signs Temp 97.1 F 04/27/21 15:24 Pulse 73 04/27/21 15:24 Resp 20 04/27/21 15:24 BP 131/78 04/27/21 15:24 Pulse Ox 94 04/27/21 15:24 Body Mass Index 35.2 Const: Other: Constitutional : Alert, oriented, not in distress Neck : Normal inspection, Supple Cardiovascular : RRR, S1 S2, bilateral LEs 1 lower extremity edema Respiratory : Fair bilateral air entry, fine basal crackles, wheezes or rhonchi Gastrointestinal: soft, lax, Normal bowel sounds, Non tender Skin : Warm/Dry, No rash Neurological : Alert & oriented x3, No focal deficit Objective Data Current Medications Generic Name Dose Route Start Last Admin Trade Name Freq PRN Reason Stop Dose Admin Acetaminophen 650 mg 04/27/21 01:26 Acetaminophen 325 Mg Tablet PO Q6H PRN Pain, Mild (Pain Scale 1-3) Allopurinol 300 mg 04/28/21 09:00 Allopurinol 300 Mg Tablet PO DAILY [facility] Amlodipine Besylate 2.5 mg 04/27/21 11:35 04/27/21 11:44 Amlodipine Besylate 2.5 Mg Tablet PO 2.5 mg DAILY [facility] Administration Protocol Carvedilol 12.5 mg 04/27/21 01:26 04/27/21 09:35 Carvedilol 12.5 Mg Tablet PO 12.5 mg BID MINERVA Administration Protocol Digoxin 0.25 mg 04/28/21 09:00 Digoxin 0.25 Mg Tablet PO DAILY [facility] Docusate Sodium 100 mg 04/27/21 01:26 Docusate Sodium 100 Mg Capsule PO DAILY PRN Constipation Enoxaparin Sodium 40 mg 04/27/21 01:26 04/27/21 02:51 Enoxaparin Sodium 40 Mg/0.4 Ml Syringe SUBCUT 40 mg BEDTIME [facility]ERVA Administration Furosemide 40 mg 04/27/21 02:00 04/27/21 13:55 Furosemide 40 Mg/4 Ml Vial IVPUSH 40 mg Q12H [facility] Administration Protocol Ondansetron HCl 4 mg 04/27/21 01:26 Ondansetron Hcl 4 Mg/2 Ml Vial IVPUSH Q8H PRN Nausea and Vomiting Pharmacy Consult 1 each 04/26/21 20:51 Consult Rx Perform Med Rec MISCELLANE ONCE PRN Consult order Sacubitril/Valsartan 1 tab 04/27/21 01:26 04/27/21 09:35 Sacubitril/Valsartan 49/51 1 Tab Tablet PO 1 tab BID [facility]ERVA Administration Protocol Sodium Chloride 3 ml 04/27/21 01:26 04/27/21 13:55 0.9 % Sodium Chloride Flush 3 Ml Syringe IVFLUSH 3 ml QSHIFT MINERVA Administration Labs CBC & Chem 7: 04/27/21 05:33 04/27/21 05:53 Labs: Laboratory Results - last 24 hr 04/26/21 04/26/21 04/26/21 16:39 16:39 16:39 MCV 90.7 MCH 30.8 MCHC 33.9 RDW 14.0 Plt Count 217 MPV 10.9 Immature Gran % (Auto) 0.3 Neut % (Auto) 67.1 Lymph % (Auto) 20.5 [place] % (Auto) 7.5 Eos % (Auto) 4.2 H Baso % (Auto) 0.4 Lymph # (Auto) 1.5 [place] # (Auto) 0.5 Eos # (Auto) 0.3 Baso # (Auto) 0.0 Abs Immat Gran (auto) 0.02 Absolute Neuts (auto) 4.8 Absolute Nucleated RBC 0.000 Nucleated RBC % (auto) 0.0 Anion Gap 14 Estim Creat Clear Calc 59.1 Estimated GFR 44 Random Glucose 114 Calcium 9.1 Total Bilirubin 2.9 H Direct Bilirubin 1.6 H AST 19 ALT 16 Alkaline Phosphatase 119 H Troponin I High Sens 12.1 B-Natriuretic Peptide 3442 H Total Protein 6.3 L Albumin 3.5 Urine Color Urine Appearance Urine pH Ur Specific [place] Urine Protein Urine Glucose (UA) Urine Ketones Urine Blood Urine Nitrite Ur Leukocyte Esterase Digoxin COVID-19 (SRINI) COVID-19 Clin Com 04/26/21 04/26/21 04/27/21 22:56 22:56 03:04 MCV MCH MCHC RDW Plt Count MPV Immature Gran % (Auto) Neut % (Auto) Lymph % (Auto) [place] % (Auto) Eos % (Auto) Baso % (Auto) Lymph # (Auto) [place] # (Auto) Eos # (Auto) Baso # (Auto) Abs Immat Gran (auto) Absolute Neuts (auto) Absolute Nucleated RBC Nucleated RBC % (auto) Anion Gap Estim Creat Clear Calc Estimated GFR Random Glucose Calcium Total Bilirubin Direct Bilirubin AST ALT Alkaline Phosphatase Troponin I High Sens B-Natriuretic Peptide Total Protein Albumin Urine Color YELLOW Urine Appearance CLEAR Urine pH 6.0 Ur Specific [place] 1.010 Urine Protein TRACE Urine Glucose (UA) NEG Urine Ketones NEG Urine Blood NEG Urine Nitrite NEG Ur Leukocyte Esterase NEG Digoxin 0.6 L COVID-19 (SRINI) Negative COVID-19 Clin Com See Note 04/27/21 04/27/21 05:33 05:53 MCV 92.2 MCH 30.0 MCHC 32.5 RDW 13.9 Plt Count 232 MPV 11.2 Immature Gran % (Auto) 0.4 Neut % (Auto) 68.1 Lymph % (Auto) 17.3 L [place] % (Auto) 7.1 Eos % (Auto) 6.7 H Baso % (Auto) 0.4 Lymph # (Auto) 1.3 [place] # (Auto) 0.5 Eos # (Auto) 0.5 H Baso # (Auto) 0.0 Abs Immat Gran (auto) 0.03 Absolute Neuts (auto) 5.0 Absolute Nucleated RBC 0.000 Nucleated RBC % (auto) 0.0 Anion Gap 13 Estim Creat Clear Calc 61.7 Estimated GFR 46 Random Glucose 111 Calcium 9.5 Total Bilirubin Direct Bilirubin AST ALT Alkaline Phosphatase Troponin I High Sens B-Natriuretic Peptide Total Protein Albumin Urine Color Urine Appearance Urine pH Ur Specific [place] Urine Protein Urine Glucose (UA) Urine Ketones Urine Blood Urine Nitrite Ur Leukocyte Esterase Digoxin COVID-19 (SRINI) COVID-19 Clin Com Assessment and Plan (1) Acute congestive heart failure with left ventricular diastolic dysfunction: Status: Acute (2) CYNTHIA (acute kidney injury): Status: Acute Assessment and Plan: This is a 50-year-old male with past medical history of heart failure presents to hospital with lower extremity edema as well as dyspnea # acute CHF exacerbation history of low ejection fraction of 10% seen on echo done in January of 2021 Improving dyspnea, orthopnea, lower extremity edema elevated BNP Continue IV Lasix 40 b.i.d. daily weight, strict I&O, low-sodium diet cardiology input appreciated # CYNTHIA Secondary to cardiorenal syndrome Continue Lasix follow BMP # hypertension slightly elevated continue carvedilol And Entresto # gout Start allopurinol DVT prophylaxis: lovenox Quality Stroke Does the patient have a stroke diagnosis?: No VTE Prior VTE?: No VTE Risk Level:: Medical - moderate - high VTE Device Contraindication: Treatment Not Indicated VTE Drug Contraindication: N/A - Med Ordered
[2021-04-28] MEDS: Furosemide 40 MG/4 ML VIAL IVPUSH (02:23)
[2021-04-28 03:38] VITALS: BP 150/90; PULSE 67; RESP 16; TEMP 36.5; O2SAT 96
[2021-04-28 05:39] VITALS: BMI 34.5
[2021-04-28 07:20] LABS: Hematocrit 47.3 % (42-52); Hemoglobin 15.4 g/dl (14.0-18.0); Mean Corpuscular HGB Conc 32.6 g/dl (31.0-36.0); Mean Corpuscular Hemoglobin 30.2 pg (27.0-33.0); Mean Corpuscular Volume 92.7 fL (80-98); Mean Platelet Volume 11.4 fL (9.4-12.4); Platelet Count 228 X10*3/uL (160-400); Red Cell Distribution Width 13.9 % (11.0-16.0); White Blood Count 7.7 X10*3/uL (4.8-10.8)
[2021-04-28 07:44] LABS: Anion Gap 13 (12-20); Blood Urea Nitrogen 33 mg/dL (9-16); Calcium 9.4 mg/dL (8.4-10.2); Carbon Dioxide 33 mmol/L (22-29); Chloride 101 mmol/L (96-108); Creatinine Clr Calc Pharmacy 62.7; Estimated Glomerular Filt Rate 49; Glucose Random 95 mg/dL (60-115); Potassium 4.1 mmol/L (3.3-5.1); Sodium 143 mmol/L (135-145)
[2021-04-28 07:59] LABS: B Type Natriuretic Peptide 2012 pg/mL (<100)
[2021-04-28 08:00] VITALS: BP 153/101; PULSE 68; RESP 20; TEMP 36.5; O2SAT 97
[2021-04-28] MEDS: allopurinoL 300 MG TABLET PO (08:37)
[2021-04-28] MEDS: Sacubitril/Valsartan 49/51 1 TAB TABLET PO (08:38)
[2021-04-28] MEDS: Digoxin 0.25 MG TABLET PO (08:38)
[2021-04-28] MEDS: 0.9 % Sodium Chloride Flush 3 ML SYRINGE IVFLUSH (08:38)
[2021-04-28] MEDS: amLODIPine Besylate 2.5 MG TABLET PO (08:38)
[2021-04-28] MEDS: carvediloL 12.5 MG TABLET PO (08:38)
--- NOTE | 2021-04-28 11:14 | P.PNCA_ITS ---
Subjective Subjective Date of Service: 04/28/21 Interval history: He feels better. But still gets short of breath with activity and also has leg swelling. Review of Systems Review of Systems Yes all other systems are reviewed and are negative Cardiovascular: Reports as per HPI, Reports no additional cardiovascular complaints, Denies acrocyanosis, Denies cool extremities, Denies painful fingertips, Denies chest pain, Denies chest pain at rest, Denies diaphoresis, Denies syncope, Denies irregular heart rhythm, Denies claudication, Reports leg edema, Denies lightheadedness, Denies palpitations and Reports dyspnea Respiratory: Reports dyspnea Denies syncope Endocrine: Denies palpitations Physical Exam Vital Signs: Last Vital Signs Temp 97.7 F 04/28/21 08:00 Pulse 68 04/28/21 08:00 Resp 20 04/28/21 08:00 BP 153/101 H 04/28/21 08:00 Pulse Ox 97 04/28/21 08:00 Body Mass Index 34.5 Const General: cooperative and no acute distress [facility] Other: Unremarkable Neck Neck: Yes normal visual inspection Chest Chest palpation & inspection: normal inspection of the chest Resp Auscultation: clear to auscultation bilaterally, no crackles and no wheezes Cardio Jugular venous distension: no JVD Palpation: normal PMI Heart sounds: S1 normal heart sound present, S2 normal heart sound present, no gallops, no murmurs and no rubs GI Palpation (GI): Soft to palpation Back/Spine/Pelvis Other: unremarkable Skin General skin exam: no rashes or lesions noted Neuro Cranial nerves: Yes Other cranial nerve findings present Extrem General: Yes edema (1-2+ bilateral edema) Psych Mental Status: other Results Labs and Meds Result diagrams: 04/28/21 06:03 04/28/21 06:03 Lab results: Laboratory Results - last 24 hr 04/28/21 04/28/21 04/28/21 06:03 06:03 06:03 WBC 7.7 RBC 5.10 Hgb 15.4 Hct 47.3 MCV 92.7 MCH 30.2 MCHC 32.6 RDW 13.9 Plt Count 228 MPV 11.4 Absolute Nucleated RBC 0.000 Nucleated RBC % (auto) 0.0 Sodium 143 Potassium 4.1 Chloride 101 Carbon Dioxide 33 H Anion Gap 13 BUN 33 H Creatinine 1.52 H Estim Creat Clear Calc 62.7 Estimated GFR 49 Random Glucose 95 Calcium 9.4 B-Natriuretic Peptide 2012 H Progress Note: A&P Assessment and plan (1) Acute on chronic systolic and diastolic heart failure, NYHA class 3: Status: Acute (2) Atherosclerotic cardiovascular disease: Status: Acute (3) Pulmonary hypertension: Status: Acute Assessment and Plan: Based on the last echocardiogram from January 2021, LVEF 10-15%. There was moderate diastolic dysfunction. There was also moderate mitral regurgitation and moderate pulmonary hypertension. Dilated non collapsing IVC. Echocardiogram from [facility] in 2018 also showed LVEF of 15-20%. Cardiac catheterization from 2018 shows mild LAD disease but otherwise unremarkable. Etiology might be from cocaine use, alcohol, hypertension some combination. I counseled him about drug use and specifically asked symptoms stain from cocaine. Also needs to cut back and stop alcohol use. Change to PO diuretics. Continue Coreg. On Entresto on already has renal dysfunction. Can keep on the current dose. Amlodipine added. If compliant in office, then possibly Aldactone. Will arrange Fu. Fall Risk Details Current Medications: Current Medications Generic Name Dose Route Start Last Admin Trade Name Freq PRN Reason Stop Dose Admin Acetaminophen 650 mg 04/27/21 01:26 Acetaminophen 325 Mg Tablet PO Q6H PRN Pain, Mild (Pain Scale 1-3) Allopurinol 300 mg 04/28/21 09:00 04/28/21 08:37 Allopurinol 300 Mg Tablet PO 300 mg DAILY [facility] Administration Amlodipine Besylate 2.5 mg 04/27/21 11:35 04/28/21 08:38 Amlodipine Besylate 2.5 Mg Tablet PO 2.5 mg DAILY [facility] Administration Protocol Carvedilol 12.5 mg 04/27/21 01:26 04/28/21 08:38 Carvedilol 12.5 Mg Tablet PO 12.5 mg BID [facility] Administration Protocol Digoxin 0.25 mg 04/28/21 09:00 04/28/21 08:38 Digoxin 0.25 Mg Tablet PO 0.25 mg DAILY [facility] Administration Docusate Sodium 100 mg 04/27/21 01:26 Docusate Sodium 100 Mg Capsule PO DAILY PRN Constipation Enoxaparin Sodium 40 mg 04/27/21 01:26 04/27/21 21:22 Enoxaparin Sodium 40 Mg/0.4 Ml Syringe SUBCUT 40 mg BEDTIME [facility]A Administration Furosemide 40 mg 04/27/21 02:00 04/28/21 02:23 Furosemide 40 Mg/4 Ml Vial IVPUSH 40 mg Q12H [facility] Administration Protocol Ondansetron HCl 4 mg 04/27/21 01:26 Ondansetron Hcl 4 Mg/2 Ml Vial IVPUSH Q8H PRN Nausea and Vomiting Pharmacy Consult 1 each 04/26/21 20:51 Consult Rx Perform Med Rec MISCELLANE ONCE PRN Consult order Sacubitril/Valsartan 1 tab 04/27/21 01:26 04/28/21 08:38 Sacubitril/Valsartan 49/51 1 Tab Tablet PO 1 tab BID [facility] Administration Protocol Sodium Chloride 3 ml 04/27/21 01:26 04/28/21 08:38 0.9 % Sodium Chloride Flush 3 Ml Syringe IVFLUSH 3 ml QSHIFT [facility]A Administration Time Spent With Patient Time: Total time spent is greater than 50% in coordination of care (as documented) at patient's floor/unit and/or counseling patient: Time with patient: less than 15 minutes Progress Note: Quality Stroke Does the patient have a stroke diagnosis?: No Procedures Date of Service Date of Service: 04/28/21
--- NOTE | 2021-04-28 12:19 | PM.DS ---
DS: Providers Provider Date of Service: 04/28/21 Date of admission: 04/26/21 23:10 Primary care physician: Unknown Physician Consults: 04/27/21 01:26 Consult to Cardiology Routine Consulting Provider: Chao Mcdonough Reason for consultation: CHF Has provider been notified: No DS: Diagnosis Discharge Diagnosis (1) Acute on chronic systolic and diastolic heart failure, NYHA class 3: Status: Acute (2) Atherosclerotic cardiovascular disease: Status: Acute (3) Pulmonary hypertension: Status: Acute (4) CYNTHIA (acute kidney injury): Status: Acute DS: Medications Discharge Medications Home Medications: Home Medications Medication Instructions Recorded Confirmed allopurinol 300 mg tablet 1 tab PO DAILY 04/26/21 04/26/21 carvedilol 12.5 mg tablet 1 tab PO BID 04/26/21 04/26/21 digoxin 250 mcg (0.25 mg) tablet 1 tab PO DAILY 04/26/21 04/26/21 sacubitril 49 mg-valsartan 51 mg 1 tab PO BID 04/26/21 04/26/21 tablet (Entresto) Previous Rx's Medication Instructions Recorded amlodipine 5 mg tablet 5 mg PO DAILY #30 tab 04/28/21 furosemide 40 mg tablet 40 mg PO BID@0900,1700 30 Days #60 04/28/21 tab DS: Summary Hospital Course Hospital Course: Admission note HPI This is a 50-year-old male with past medical history of heart failure with an ejection fraction of 10%, and history of gout who presents to the hospital for leg swelling and shortness of breath.? Patient was seen by his PCP today who sent him to the ED.? Patient reports that his leg swelling started about 3-4 days ago, associated with shortness of breath, no cough, no sputum production, no fever or chills, no chest pain.? he has some orthopnea with no PND.? Reports no sick contacts or recent travel.? He has some palpitations that are infrequent.? No headache, change in vision, no abdominal pain nausea or vomiting, no diarrhea constipation, no urinary symptoms and no numbness tingling or weakness.? Also noted to have gained 8 lb within few weeks. Patient reports compliance with his Lasix of 40 mg daily, he reports compliance with low-sodium diet. On arrival to the ED patient hemodynamically stable with a slightly elevated blood pressure otherwise no significant abnormality Labs unremarkable except for chloride of 109, BUN of 37, creatinine of 1.65 with a baseline around 1.1, total bili of 2.9, with direct bili of 1.6 (chronically elevated), BNP of 3442, digoxin level of 0.6 Chest x-ray shows stable enlargement of the cardiac silhouette with no evidence for acute disease Past medical history as below and confirmed with patient Hospital course Patient was admitted for treatment of CHF exacerbation shown on x-ray. Known history of low ejection fraction of 10-15% on echo. Treated with IV Lasix over the course of hospital stay with good response as he was evaluated by Cardiology team and was able to ambulate on room air with reported mild dyspnea by the end of the walk. His lower extremities swelling improved significantly. He established care with Dr. Mcdonough to follow-up with him as outpatient. kidney function noticed to be worse than baseline at time of presentation secondary to heart failure. Improved with Lasix usage. To repeat BMP as outpatient. To be discharged on a higher dose of Lasix 40 mg twice Daily To start amlodipine 5 mg daily Time Spent with Patient Time attestation: Total time spent providing and/or coordinating discharge services: Discharge coordination time: Greater than 30 minutes Quality: Stroke Does the patient have a stroke diagnosis?: No Physical Exam Vital Signs: Vital Signs: Last Vital Signs Temp 97.7 F 04/28/21 08:00 Pulse 68 04/28/21 08:00 Resp 20 04/28/21 08:00 BP 153/101 H 04/28/21 08:00 Pulse Ox 97 04/28/21 08:00 Body Mass Index 34.5 Const: Other: Constitutional : Alert, oriented, not in distress Neck : Normal inspection, Supple Cardiovascular : RRR, S1 S2, trace bilateral lower extremity edema Respiratory : Fair bilateral air entry, no crackles, wheezes or rhonchi Gastrointestinal: soft, lax, Normal bowel sounds, Non tender Skin : Warm/Dry, No rash Neurological : Alert & oriented x3, No focal deficit DS: Data Data Completed and Pending Labs on day of discharge: Laboratory Results - last 24 hr 04/28/21 04/28/21 04/28/21 06:03 06:03 06:03 WBC 7.7 RBC 5.10 Hgb 15.4 Hct 47.3 MCV 92.7 MCH 30.2 MCHC 32.6 RDW 13.9 Plt Count 228 MPV 11.4 Absolute Nucleated RBC 0.000 Nucleated RBC % (auto) 0.0 Sodium 143 Potassium 4.1 Chloride 101 Carbon Dioxide 33 H Anion Gap 13 BUN 33 H Creatinine 1.52 H Estim Creat Clear Calc 62.7 Estimated GFR 49 Random Glucose 95 Calcium 9.4 B-Natriuretic Peptide 2012 H Discharge Plan Discharge Patient Disposition: Home, Self-Care Discharge Diagnosis: Heart failure exacerbation Referrals: Physician,Unknown [Primary Care Provider] - 1 Week Discharge Medications: New amlodipine 5 mg tablet 5 mg PO DAILY Qty: 30 RF: 0 Continued carvedilol 12.5 mg tablet 1 tab PO BID RF: 0 digoxin 250 mcg (0.25 mg) tablet 1 tab PO DAILY RF: 0 allopurinol 300 mg tablet 1 tab PO DAILY RF: 0 Entresto 49-51 mg tablet 1 tab PO BID RF: 0 Changed furosemide 40 mg tablet 40 mg PO BID@0900,1700 30 Days Qty: 60 RF: 0 Discharge Orders: Discharge Order (Routine); Ordered 04/28/21 Ordered By: Joycelyn Beltran Diet: low salt diet Activity on Discharge: As tolerated Stand Alone Forms: Patient Portal Discharge page Care Plan Goals: Read below Health Concerns: Read below Plan of Treatment: You were admitted to the hospital for evaluation of lower extremity edema and shortness of breath. Found to be in heart failure exacerbation. Treated with IV Lasix with good response over the course of hospital stay as you were evaluated by Cardiology team. Assessment: Increase Lasix to 40 mg twice start amlodipine 5 mg daily To follow-up with Dr. Mcdonough as outpatient
--- NOTE | 2021-04-28 12:30 | MHC.CM.PN ---
Patient has been medically cleared for dc to home today, no services.
== END 2021-04-28 13:30 | disposition home or self-care (01) | DRG 194 ==
LOC: HO.ED 22:42 → HO.EDOVER 04-27 00:35 → HO.IMC 04-27 07:27
PROVIDERS: Physician Assistant; Admitting Provider Internal Medicine; Emergency Provider Emergency Medicine; Visit Provider Student in an Organized Health Care Education/Training Program
DX: I11.0 Hypertensive heart disease with heart failure (principal); N17.9 Acute kidney failure, unspecified; I27.20 Pulmonary hypertension, unspecified; I42.8 Other cardiomyopathies; M10.9 Gout, unspecified; I25.10 Atherosclerotic heart disease of native coronary artery without angina pectoris; I50.33 Acute on chronic diastolic (congestive) heart failure; Z20.822 Contact with and (suspected) exposure to COVID-19; Z88.5 Allergy status to narcotic agent; Z88.6 Allergy status to analgesic agent; Z79.899 Other long term (current) drug therapy
CPT/HCPCS: 36415; 71045; 80048; 80076; 80162; 81003; 83880; 84484; 85025; 85027; 87635; 93005; 99219; 99285; J1650; J1940

== ENCOUNTER → 2021-05-25 13:47 | Outpatient (BNVA) | payer OTHER, SELFPAY | PROVIDERS: Referring Provider Internal Medicine; Visit Provider Internal Medicine | DX: I11.0 Hypertensive heart disease with heart failure (principal); I50.42 Chronic combined systolic (congestive) and diastolic (congestive) heart failure; I25.10 Atherosclerotic heart disease of native coronary artery without angina pectoris; F14.90 Cocaine use, unspecified, uncomplicated | CPT/HCPCS: 99212 ==

== ENCOUNTER → 2021-08-19 09:38 | Outpatient (REF) | payer OTHER, SELFPAY ==
--- NOTE | 2021-08-19 09:41 | CA_ITS ---
Transthoracic Echocardiogram Patient (Last, First, Middle): Dom Yoder, Gender: Male Date of : 1970 Age: 50 Procedure Date: 08/19/2021 Procedure Type: Transthoracic Echocardiogram Location: OP Height: 167.64 cm Weight: 97.1 kg BSA: 2.06 m2 Heart Rate: bpm BP: 132 / 99 mmHg Ship Surveyor: MARLEN Referring MD: Chao Mcdonough MD Symptoms: I50.42 - Chronic combined systolic (congestive) and diast... Conclusions: - Severely increased left ventricular cavity size. The left ventricular systolic function is severely decreased. The visually estimated ejection fraction is between 15-20%. - Moderately increased right ventricular cavity size. There is moderate to severely decreased right ventricular systolic function. - Global longitudinal strain is significantly reduced at 4.5%. Findings Left Ventricle Severely increased left ventricular cavity size. The left ventricular systolic function is severely decreased. The visually estimated ejection fraction is between 15-20%. There is severe global hypokinesis. Abnormal diastolic function is noted. Spectral Doppler is indicative of a restrictive filling pattern. Elevated filling pressures. Right Ventricle Moderately increased right ventricular cavity size. There is moderate to severely decreased right ventricular systolic function. Mitral Valve There is moderate mitral valve stenosis. There is apical tethering of mitral valve leaflets. Prior Study Comparison Changes noted compared to prior study dated: 02/25/2021. Right ventricle is moderately is all she and systolic function is moderately reduced. Measurements M-Mode Liner Measurements Normals - Women/Men LVIDd: 6.97 3.9-5.3/4.2-5.9 cm LVIDd Index: 3.38 1.9-3.2 cm/m2 LVIDs: 6.26 2.0-3.8 cm M-Mode Volumes LV EDV: 253.00 LV ESV: 198.00 2D Linear Measurements LVIDd: 7.05 3.9-5.3/4.2-5.9 cm LVIDd Index: 3.42 2.4-3.2/2.2-3.1 cm/m2 LVIDs: 6.23 2.0-3.6 cm 2D Systolic Function EF 4C: 34.50 >55% M-Mode Systolic Function FS: 10.20 27-47/25-43% LVEF: 21.70 >55% Mitral Valve MV Pk E: 0.84 MV PK A: 0.19 MV Decel Time: 173.00 E/A: 4.40 E'Lateral: 9.03 E'Medial: 3.59 E/E' Med: 23.40 E/E' Lat: 9.30 PHT: 51.00 MVA PHT: 4.31 Decel [place]: 4.84 Diastolic Function MV Pk E: 0.84 MV Pk A: 0.19 E/A: 4.40 E'Medial: 3.59 E/E' Med: 23.40 E' Laterial: 9.03 E/E' Lat: 9.30 Right Ventricle TAPSE (mm): 1.32 Updated in Other Vendor System with Status of Final Daquan Roca MD electronically signed on 08/22/2021 9:59:58 PM with status of Final
== END ==
LOC: HO.CARD 09:38
PROVIDERS: PCP Internal Medicine; Visit Provider Internal Medicine
DX: I50.42 Chronic combined systolic (congestive) and diastolic (congestive) heart failure (principal)
CPT/HCPCS: 93308

== ENCOUNTER → 2021-08-23 11:11 | Outpatient (BNVA) | payer OTHER, SELFPAY | PROVIDERS: PCP Internal Medicine; Referring Provider Internal Medicine; Visit Provider Internal Medicine | DX: I11.0 Hypertensive heart disease with heart failure (principal); I50.42 Chronic combined systolic (congestive) and diastolic (congestive) heart failure; I25.10 Atherosclerotic heart disease of native coronary artery without angina pectoris; F14.90 Cocaine use, unspecified, uncomplicated | CPT/HCPCS: 99212 ==

== ENCOUNTER 2021-08-30 13:13 | Outpatient (REF) | payer OTHER, SELFPAY ==
--- NOTE | ~2021-08-30 | XR_ITS ---
EXAMINATION: XR CHEST CLINICAL INFORMATION: CHF. Rule out pneumonia. COMPARISON: Previous chest x-ray most recent March 2021 TECHNIQUE: 2 views of the chest were obtained. FINDINGS: The cardiac silhouette is enlarged but stable. Hilar and mediastinal contours are unremarkable. The lungs are clear. No evidence of pulmonary edema or pneumonia is seen. There is no pleural effusion or pneumothorax. There are degenerative changes of the spine. XR/XR chest 2V IMPRESSION: Stable enlargement of the cardiac silhouette. No evidence of pulmonary edema or pneumonia.
[2021-08-30 15:24] LABS: MANUAL DIFF FLAG NO
[2021-08-30 15:32] LABS: Basophils Percent Auto 0.5 % (0-2); Eosinophils Absolute Auto 0.4 X10*3/uL (0.0-0.4); Eosinophils Percent Auto 5.7 % (0-4); Hematocrit 51.5 % (42.0-52.0); Hemoglobin 16.8 g/dl (14.0-18.0); Imm Gran Abs Auto 0.02 X10*3/uL (0.00-0.03); Imm Gran Pct Auto 0.3 % (0.0-0.4); Lymphocytes Absolute Auto 1.3 X10*3/uL (1.2-4.9); Lymphocytes Percent Auto 17.2 % (20-40); Mean Corpuscular HGB Conc 32.6 g/dl (31.0-36.0); Mean Corpuscular Hemoglobin 29.8 pg (27.0-33.0); Mean Corpuscular Volume 91.3 fL (80.0-98.0); Mean Platelet Volume 10.5 fL (9.4-12.4); Monocytes Absolute Auto 0.6 X10*3/uL (0.1-1.2); Monocytes Percent Auto 8.2 % (2-11); Neutrophils Absolute Auto 5.3 x10*3/uL (2.0-8.3); Neutrophils Percent Auto 68.1 % (45-73); Platelet Count 289 X10*3/uL (160-400); Red Blood Count 5.64 X10*6/uL (4.60-5.80); Red Cell Distribution Width 12.9 % (11.0-16.0); White Blood Count 7.8 X10*3/uL (4.8-10.8)
[2021-08-30 15:53] LABS: B Type Natriuretic Peptide 754 pg/mL (<100)
[2021-08-30 15:57] LABS: Alanine Aminotransferase 13 U/L (0-40); Albumin Level 3.7 g/dL (3.5-5.0); Alkaline Phosphatase 124 U/L (39-117); Anion Gap 15 (12-20); Aspartate Amino Transferase 14 U/L (5-37); Bilirubin Total 1.9 mg/dL (0.0-1.0); Blood Urea Nitrogen 25 mg/dL (9-16); Calcium 9.7 mg/dL (8.4-10.2); Carbon Dioxide 29 mmol/L (22-29); Chloride 99 mmol/L (96-108); Estimated Glomerular Filt Rate 46; Glucose Random 118 mg/dL (60-115); Potassium 4.3 mmol/L (3.3-5.1); Sodium 139 mmol/L (135-145); Total Protein 7.3 g/dL (6.5-8.0); Uric Acid 12.5 mg/dL (3.4-7.0)
[2021-08-30 16:17] LABS: Thyroid Stimulating Hormone 1.38 uIU/mL (0.32-4.0)
== END 2021-08-30 13:14 | disposition home or self-care (01) ==
LOC: HO.LAB 13:13
PROVIDERS: Absent Provider Internal Medicine; PCP Internal Medicine; Visit Provider Internal Medicine
DX: I42.9 Cardiomyopathy, unspecified (principal); I50.42 Chronic combined systolic (congestive) and diastolic (congestive) heart failure; E79.0 Hyperuricemia without signs of inflammatory arthritis and tophaceous disease
CPT/HCPCS: 36415; 71046; 80053; 83880; 84443; 84550; 85025

== ENCOUNTER 2021-10-12 09:11 | Outpatient (REF) | payer OTHER, SELFPAY ==
[2021-10-12 09:26] LABS: MANUAL DIFF FLAG NO
[2021-10-12 09:51] LABS: Basophils Percent Auto 0.3 % (0-2); Eosinophils Absolute Auto 0.3 X10*3/uL (0.0-0.4); Eosinophils Percent Auto 4.2 % (0-4); Hematocrit 47.3 % (42.0-52.0); Hemoglobin 15.1 g/dl (14.0-18.0); Imm Gran Abs Auto 0.02 X10*3/uL (0.00-0.03); Imm Gran Pct Auto 0.3 % (0.0-0.4); Lymphocytes Absolute Auto 1.1 X10*3/uL (1.2-4.9); Lymphocytes Percent Auto 17.8 % (20-40); Mean Corpuscular HGB Conc 31.9 g/dl (31.0-36.0); Mean Corpuscular Volume 93.8 fL (80.0-98.0); Mean Platelet Volume 11.2 fL (9.4-12.4); Monocytes Absolute Auto 0.5 X10*3/uL (0.1-1.2); Monocytes Percent Auto 8.5 % (2-11); Neutrophils Absolute Auto 4.2 x10*3/uL (2.0-8.3); Neutrophils Percent Auto 68.9 % (45-73); Platelet Count 220 X10*3/uL (160-400); Red Blood Count 5.04 X10*6/uL (4.60-5.80); Red Cell Distribution Width 14.5 % (11.0-16.0); White Blood Count 6.1 X10*3/uL (4.8-10.8)
[2021-10-12 10:15] LABS: Alanine Aminotransferase 22 U/L (0-40); Albumin Level 3.4 g/dL (3.5-5.0); Alkaline Phosphatase 123 U/L (39-117); Anion Gap 10 (12-20); Aspartate Amino Transferase 15 U/L (5-37); Bilirubin Total 1.7 mg/dL (0.0-1.0); Blood Urea Nitrogen 51 mg/dL (9-16); Carbon Dioxide 28 mmol/L (22-29); Chloride 106 mmol/L (96-108); Estimated Glomerular Filt Rate 27; Glucose Random 96 mg/dL (60-115); Potassium 4.9 mmol/L (3.3-5.1); Sodium 139 mmol/L (135-145); Total Protein 6.5 g/dL (6.5-8.0); Uric Acid 12.4 mg/dL (3.4-7.0)
[2021-10-12 10:19] LABS: B Type Natriuretic Peptide 2593 pg/mL (<100)
[2021-10-12 10:42] LABS: Thyroid Stimulating Hormone 1.41 uIU/mL (0.32-4.0)
== END 2021-10-12 09:12 | disposition home or self-care (01) ==
LOC: HO.LAB 09:11
PROVIDERS: PCP Internal Medicine; Visit Provider Internal Medicine
DX: I42.9 Cardiomyopathy, unspecified (principal); I50.9 Heart failure, unspecified; N18.9 Chronic kidney disease, unspecified; R60.9 Edema, unspecified
CPT/HCPCS: 36415; 80053; 83880; 84443; 84550; 85025; 99212

== ENCOUNTER 2021-10-20 10:29 | Outpatient (REF) | payer OTHER, SELFPAY ==
[2021-10-20 11:39] LABS: B Type Natriuretic Peptide 245 pg/mL (<100)
[2021-10-20 11:40] LABS: Anion Gap 14 (12-20); Blood Urea Nitrogen 43 mg/dL (9-16); Carbon Dioxide 32 mmol/L (22-29); Chloride 98 mmol/L (96-108); Estimated Glomerular Filt Rate 32; Glucose Fasting 175 mg/dL (60-99); Sodium 139 mmol/L (135-145)
== END 2021-10-20 10:30 | disposition home or self-care (01) ==
LOC: HO.LAB 10:29
PROVIDERS: PCP Internal Medicine; Visit Provider Internal Medicine
DX: I50.42 Chronic combined systolic (congestive) and diastolic (congestive) heart failure (principal)
CPT/HCPCS: 36415; 80048; 83880

== ENCOUNTER → 2021-11-02 14:07 | Outpatient (BNVA) | payer OTHER, SELFPAY | PROVIDERS: PCP Internal Medicine; Referring Provider Internal Medicine; Visit Provider Internal Medicine | DX: I11.0 Hypertensive heart disease with heart failure (principal); I50.43 Acute on chronic combined systolic (congestive) and diastolic (congestive) heart failure; I25.10 Atherosclerotic heart disease of native coronary artery without angina pectoris; F14.90 Cocaine use, unspecified, uncomplicated; M10.9 Gout, unspecified; Z79.899 Other long term (current) drug therapy | CPT/HCPCS: 99212 ==

== ENCOUNTER 2022-01-25 15:05 | Outpatient (REF) | payer OTHER, SELFPAY ==
[2022-01-25 15:24] LABS: MANUAL DIFF FLAG NO
[2022-01-25 15:39] LABS: Estimated Average Glucose 117 mg/dL; Hemoglobin A1c % 5.7 %
[2022-01-25 15:43] LABS: Basophils Percent Auto 0.3 % (0-2); Eosinophils Absolute Auto 0.4 X10*3/uL (0.0-0.4); Eosinophils Percent Auto 3.9 % (0-4); Hematocrit 41.8 % (42.0-52.0); Hemoglobin 13.7 g/dl (14.0-18.0); Imm Gran Abs Auto 0.03 X10*3/uL (0.00-0.03); Imm Gran Pct Auto 0.3 % (0.0-0.4); Lymphocytes Absolute Auto 1.2 X10*3/uL (1.2-4.9); Lymphocytes Percent Auto 11.3 % (20-40); Mean Corpuscular HGB Conc 32.8 g/dl (31.0-36.0); Mean Corpuscular Hemoglobin 29.2 pg (27.0-33.0); Mean Corpuscular Volume 89.1 fL (80.0-98.0); Mean Platelet Volume 10.4 fL (9.4-12.4); Monocytes Absolute Auto 0.8 X10*3/uL (0.1-1.2); Monocytes Percent Auto 7.6 % (2-11); Neutrophils Absolute Auto 7.8 x10*3/uL (2.0-8.3); Neutrophils Percent Auto 76.6 % (45-73); Platelet Count 362 X10*3/uL (160-400); Red Blood Count 4.69 X10*6/uL (4.60-5.80); Red Cell Distribution Width 13.4 % (11.0-16.0); White Blood Count 10.2 X10*3/uL (4.8-10.8)
[2022-01-25 16:05] LABS: Alanine Aminotransferase 11 U/L (0-40); Albumin Level 3.6 g/dL (3.5-5.0); Alkaline Phosphatase 188 U/L (39-117); Anion Gap 11 (12-20); Aspartate Amino Transferase 13 U/L (5-37); Bilirubin Total 2.1 mg/dL (0.0-1.0); Blood Urea Nitrogen 32 mg/dL (9-16); Calcium 9.7 mg/dL (8.4-10.2); Carbon Dioxide 29 mmol/L (22-29); Chloride 102 mmol/L (96-108); Estimated Glomerular Filt Rate 52; Glucose Random 129 mg/dL (60-115); Potassium 4.3 mmol/L (3.3-5.1); Sodium 138 mmol/L (135-145); Total Protein 7.2 g/dL (6.5-8.0)
[2022-01-25 16:07] LABS: B Type Natriuretic Peptide 1243 pg/mL (<100)
== END 2022-01-25 15:06 | disposition home or self-care (01) ==
LOC: HO.LAB 15:05
PROVIDERS: Absent Provider Internal Medicine; PCP Internal Medicine; Visit Provider Internal Medicine
DX: I50.9 Heart failure, unspecified (principal); I42.9 Cardiomyopathy, unspecified; N18.9 Chronic kidney disease, unspecified
CPT/HCPCS: 36415; 80053; 83036; 83880; 85025

== ENCOUNTER → 2022-01-30 14:28 | Outpatient (BNVA) | payer OTHER, SELFPAY | PROVIDERS: PCP Internal Medicine; Referring Provider Internal Medicine; Visit Provider Internal Medicine | DX: I25.10 Atherosclerotic heart disease of native coronary artery without angina pectoris (principal); I11.0 Hypertensive heart disease with heart failure; I50.42 Chronic combined systolic (congestive) and diastolic (congestive) heart failure; F14.90 Cocaine use, unspecified, uncomplicated; Z79.899 Other long term (current) drug therapy; Z45.02 Encounter for adjustment and management of automatic implantable cardiac defibrillator | CPT/HCPCS: 99212 ==

== ENCOUNTER 2022-04-07 12:40 | Outpatient (REF) | payer OTHER, SELFPAY ==
[2022-04-07 13:13] LABS: MANUAL DIFF FLAG NO
[2022-04-07 13:18] LABS: Basophils Percent Auto 0.4 % (0-2); Eosinophils Absolute Auto 0.5 X10*3/uL (0.0-0.4); Eosinophils Percent Auto 5.1 % (0-4); Hemoglobin 14.1 g/dl (14.0-18.0); Imm Gran Abs Auto 0.04 X10*3/uL (0.00-0.03); Imm Gran Pct Auto 0.4 % (0.0-0.4); Lymphocytes Absolute Auto 1.1 X10*3/uL (1.2-4.9); Mean Corpuscular HGB Conc 33.6 g/dl (31.0-36.0); Mean Corpuscular Hemoglobin 30.8 pg (27.0-33.0); Mean Corpuscular Volume 91.7 fL (80.0-98.0); Mean Platelet Volume 10.4 fL (9.4-12.4); Monocytes Absolute Auto 0.7 X10*3/uL (0.1-1.2); Monocytes Percent Auto 7.2 % (2-11); Neutrophils Absolute Auto 7.8 x10*3/uL (2.0-8.3); Neutrophils Percent Auto 75.9 % (45-73); Platelet Count 271 X10*3/uL (160-400); Red Blood Count 4.58 X10*6/uL (4.60-5.80); Red Cell Distribution Width 14.3 % (11.0-16.0); White Blood Count 10.3 X10*3/uL (4.8-10.8)
[2022-04-07 14:09] LABS: Alanine Aminotransferase 14 U/L (0-40); Albumin Level 3.7 g/dL (3.5-5.0); Alkaline Phosphatase 157 U/L (39-117); Anion Gap 12 (12-20); Aspartate Amino Transferase 16 U/L (5-37); Bilirubin Total 1.2 mg/dL (0.0-1.0); Blood Urea Nitrogen 25 mg/dL (9-16); Calcium 9.1 mg/dL (8.4-10.2); Carbon Dioxide 25 mmol/L (22-29); Chloride 106 mmol/L (96-108); Estimated Glomerular Filt Rate 57; Glucose Random 123 mg/dL (60-115); Potassium 4.4 mmol/L (3.3-5.1); Sodium 139 mmol/L (135-145)
[2022-04-07 14:43] LABS: Estimated Average Glucose 103 mg/dL; Hemoglobin A1c % 5.2 %
[2022-04-07 18:06] LABS: Creatinine Urine 144.11 mg/dL; Microalbum/Creatinine Ratio Ur 798.6 ug/mg cr
== END 2022-04-07 12:41 | disposition home or self-care (01) ==
LOC: HO.LAB 12:40
PROVIDERS: PCP Internal Medicine; Visit Provider Internal Medicine
DX: E11.22 Type 2 diabetes mellitus with diabetic chronic kidney disease (principal); N18.9 Chronic kidney disease, unspecified; I50.9 Heart failure, unspecified; I42.9 Cardiomyopathy, unspecified
CPT/HCPCS: 36415; 80053; 82043; 83036; 85025

== ENCOUNTER → 2022-04-24 11:37 | Outpatient (REF) | payer OTHER, SELFPAY ==
--- NOTE | 2022-04-24 11:39 | CA_ITS ---
Transthoracic Echocardiogram Patient (Last, First, Middle): Dom Yoder, Gender: Male Date of : 1970 Age: 51 Procedure Date: 04/24/2022 Procedure Type: Transthoracic Echocardiogram Location: OP Height: 167.64 cm Weight: 88.45 kg BSA: 1.98 m2 Heart Rate: bpm BP: 115 / 68 mmHg Fmd Teacher: Referring MD: Chao Mcdonough MD Symptoms: I50.42 - Chronic combined systolic (congestive) and diast... Study Quality: Fair ECG Rhythm: Sinus Conclusions: - The left ventricular systolic function is severely decreased. The visually estimated ejection fraction is between 15-20%. - Evidence suggests grade III (severe) diastolic dysfunction. - There is moderately decreased right ventricular systolic function. - There is mild to moderate mitral valve regurgitation. Findings Left Ventricle Moderately increased left ventricular cavity size. There is mildly increased left ventricular wall thickness. The left ventricular systolic function is severely decreased. The visually estimated ejection fraction is between 15 20%. There is severe global hypokinesis. E/E prime ratio is >15, consistent with elevated filling pressures. Evidence suggests grade III (severe) diastolic dysfunction. Right Ventricle Moderately increased right ventricular cavity size. There is moderately decreased right ventricular systolic function. There is an ICD wire seen in the right ventricle. Atria The left atrium is mildly dilated. The right atrium is normal in size. Aortic Valve There is a normal trileaflet aortic valve. There is no aortic valve stenosis. There is no aortic valve regurgitation. Mitral Valve The posterior mitral leaflet has restricted mobility. There is mild to moderate mitral valve regurgitation. The mitral regurgitation jet is directed posteriorly. There is no mitral valve stenosis. Pulmonic Valve The pulmonic valve is likely normal. Tricuspid Valve There is mild tricuspid valve regurgitation. The pulmonary artery systolic pressure is normal. Great Vessels The sinuses of valsalva and asc aorta are normal in size. Venous The inferior vena cava is mildly dilated and collapses greater than 50% with inspiration. Pericardium/Pleural There is no evidence of pericardial effusion. Prior Study Comparison No significant change compared to prior study dated: 08/19/2021. Measurements 2D Linear Measurements IVSd: 1.13 0.6-0.9/0.6-1.0 cm LVIDd: 6.64 3.9-5.3/4.2-5.9 cm LVIDd Index: 3.35 2.4-3.2/2.2-3.1 cm/m2 LVIDs: 6.20 2.0-3.6 cm LVPWd: 1.11 0.7-1.1 cm Ao Root: 3.60 2.1-3.5 cm LA Diam: 4.50 2.7-3.8/3.0-4.0 cm LAIDs Index: 2.27 1.5-2.3 cm/m2 LV Mass: 423.77 67-162/88-224 g LV Mass Index: 214.03 43-95/49-115 g/m2 LVOT Diam: 2.30 3.0+(-)1.3 cm 2D Systolic Function EF 4C: 20.30 >55% EF 2C: 29.60 >55% EF BiP: 26.20 >55% Mitral Valve MV Pk E: 0.99 MV Decel Time: 128.00 E'Lateral: 5.55 E'Medial: 3.48 E/E' Med: 28.60 E/E' Lat: 17.90 PHT: 38.00 MVA PHT: 5.79 Decel [place]: 7.74 MR Vol - PW Dopp: 46.20 MR VTI: 1.40 MR ERO: 33.00 MR Alias Sanjay: 0.39 MR RAD: 0.80 Aortic Valve AoV Pk Sanjay: 0.86 AoV Mn Sanjay: 0.58 AoV VTI: 0.17 AoV Pk Grad: 3.00 Aov Mn Grad: 2.00 PAU Cont.VTI: 2.23 LVOT LVOT Pk Sanjay: 0.52 LVOT Mn Sanjay: 0.37 LVOT VTI: 0.09 LVOT Pk Grad: 1.00 LVOT Mn Grad: 1.00 LVOT Diam: 2.30 LVOT Area: 4.15 Diastolic Function MV Pk E: 0.99 E'Medial: 3.48 E/E' Med: 28.60 E' Laterial: 5.55 E/E' Lat: 17.90 Tricuspid Valve TR Pk Sanjay: 2.00 TR Pk Grad: 16.00 RA Press: 8.00 RVSP: 24.00 Great Vessels Aorta Ao Root-2D: 3.60 2.0-3.7 cm Ao Asc: 3.50 2.1-3.4 cm Pulmonary Valve PV Pk Sanjay: 0.71 Peak PV Grad: 2.00 Updated in Other Vendor System with Status of Final Chao Mcdonough MD electronically signed on 04/25/2022 2:23:22 PM with status of Final
== END ==
LOC: HO.CARD 11:37
PROVIDERS: PCP Internal Medicine; Visit Provider Internal Medicine
DX: I50.42 Chronic combined systolic (congestive) and diastolic (congestive) heart failure (principal)
CPT/HCPCS: 93306

== ENCOUNTER → 2022-05-16 14:27 | Outpatient (BNVA) | payer OTHER, SELFPAY | PROVIDERS: PCP Internal Medicine; Referring Provider Internal Medicine; Visit Provider Internal Medicine | DX: I25.10 Atherosclerotic heart disease of native coronary artery without angina pectoris (principal); I11.0 Hypertensive heart disease with heart failure; I50.42 Chronic combined systolic (congestive) and diastolic (congestive) heart failure; F14.90 Cocaine use, unspecified, uncomplicated; Z79.899 Other long term (current) drug therapy; Z95.810 Presence of automatic (implantable) cardiac defibrillator | CPT/HCPCS: 93005; 99212 ==

== ENCOUNTER 2022-08-07 16:23 | Outpatient (REF) | payer OTHER, SELFPAY ==
--- NOTE | ~2022-08-07 | XR_ITS ---
EXAMINATION: XR CHEST CLINICAL INFORMATION: Cough. Rule out CHF or pneumonia. COMPARISON: Previous chest x-ray most recent August 2021 TECHNIQUE: 2 views of the chest were obtained. FINDINGS: There is a new left subclavian single chamber pacemaker projecting over the ventricular apex. The cardiac silhouette is slightly enlarged but stable. Hilar and mediastinal contours are unremarkable. The lungs are clear. There is no pleural effusion or pneumothorax. There are degenerative changes of the spine. XR/XR chest 2V IMPRESSION: Stable enlargement of the cardiac silhouette. New left subclavian single chamber pacemaker. No evidence for acute disease in the chest.
[2022-08-07 16:38] LABS: MANUAL DIFF FLAG NO
[2022-08-07 16:53] LABS: Basophils Percent Auto 0.1 % (0-2); Eosinophils Absolute Auto 0.6 X10*3/uL (0.0-0.4); Eosinophils Percent Auto 5.8 % (0-4); Hematocrit 47.9 % (42.0-52.0); Hemoglobin 16.2 g/dl (14.0-18.0); Imm Gran Abs Auto 0.02 X10*3/uL (0.00-0.03); Imm Gran Pct Auto 0.2 % (0.0-0.4); Lymphocytes Absolute Auto 1.9 X10*3/uL (1.2-4.9); Lymphocytes Percent Auto 19.7 % (20-40); Mean Corpuscular HGB Conc 33.8 g/dl (31.0-36.0); Mean Corpuscular Hemoglobin 30.8 pg (27.0-33.0); Mean Corpuscular Volume 91.1 fL (80.0-98.0); Mean Platelet Volume 10.7 fL (9.4-12.4); Monocytes Absolute Auto 0.9 X10*3/uL (0.1-1.2); Monocytes Percent Auto 9.4 % (2-11); Neutrophils Absolute Auto 6.2 x10*3/uL (2.0-8.3); Neutrophils Percent Auto 64.8 % (45-73); Platelet Count 247 X10*3/uL (160-400); Red Blood Count 5.26 X10*6/uL (4.60-5.80); White Blood Count 9.6 X10*3/uL (4.8-10.8)
[2022-08-07 17:18] LABS: Alanine Aminotransferase 19 U/L (0-40); Alkaline Phosphatase 154 U/L (39-117); Anion Gap 18 (12-20); Aspartate Amino Transferase 23 U/L (5-37); Bilirubin Total 2.1 mg/dL (0.0-1.0); Blood Urea Nitrogen 29 mg/dL (9-16); Calcium 9.3 mg/dL (8.4-10.2); Carbon Dioxide 28 mmol/L (22-29); Chloride 99 mmol/L (96-108); Estimated Glomerular Filt Rate 36; Glucose Random 109 mg/dL (60-115); Potassium 3.9 mmol/L (3.3-5.1); Sodium 141 mmol/L (135-145); Total Protein 7.6 g/dL (6.5-8.0)
[2022-08-07 17:19] LABS: B Type Natriuretic Peptide 186 pg/mL (<100)
[2022-08-07 17:41] LABS: Influenza A PCR NEGATIVE (Negative); Influenza B PCR NEGATIVE (Negative); Resp Syncy Virus RNA Qual PCR NEGATIVE (Negative); SARS COV2 PCR INHOUSE NEGATIVE (Negative)
== END 2022-08-07 16:24 | disposition home or self-care (01) ==
LOC: HO.XRAY 16:23
PROVIDERS: Visit Provider Internal Medicine
DX: R05.9 Cough, unspecified (principal); R06.02 Shortness of breath; R06.2 Wheezing
CPT/HCPCS: 0241U; 36415; 71046; 80053; 83880; 85025

== ENCOUNTER → 2022-10-10 14:39 | Outpatient (BNVA) | payer OTHER, SELFPAY | PROVIDERS: PCP Internal Medicine; Referring Provider Internal Medicine; Visit Provider Internal Medicine | DX: I11.0 Hypertensive heart disease with heart failure (principal); I50.42 Chronic combined systolic (congestive) and diastolic (congestive) heart failure; I25.10 Atherosclerotic heart disease of native coronary artery without angina pectoris; F14.90 Cocaine use, unspecified, uncomplicated; Z79.899 Other long term (current) drug therapy; Z95.810 Presence of automatic (implantable) cardiac defibrillator | CPT/HCPCS: 99212 ==

== ENCOUNTER → 2022-12-19 13:13 | Outpatient (REF) | payer OTHER, SELFPAY ==
--- NOTE | 2022-12-19 13:18 | CA_ITS ---
Transthoracic Echocardiogram Patient (Last, First, Middle): Dom Yoder, Gender: Male Date of : 1970 Age: 52 Procedure Date: 12/19/2022 Procedure Type: Transthoracic Echocardiogram Location: OP Height: 167.64 cm Weight: 99.79 kg BSA: 2.08 m2 Heart Rate: bpm BP: 112 / 64 mmHg General Car Supervisor Yard: TO Referring MD: Chao Mcdonough MD Symptoms: I50.42 - Chronic combined systolic (congestive) and diastolic (congestiv... Study Quality: Fair Conclusions: - 1. Moderately dilated left ventricle with severe LV systolic dysfunction with LVEF of 25-30% with grade 3 diastolic dysfunction 2. At least mild left atrial enlargement 3. Copu-hr-pyizahhp mitral regurgitation 4. Mildly reduced RV systolic function 5. Normal RV systolic pressure 6. No gross pericardial effusion Findings Left Ventricle Moderately increased left ventricular cavity size. There is normal left ventricular wall thickness. The left ventricular systolic function is severely decreased. The visually estimated ejection fraction is between 25 30%. Spectral Doppler is indicative of a restrictive filling pattern. E/E prime ratio is >15, consistent with elevated filling pressures. Evidence suggests grade III (severe) diastolic dysfunction. Right Ventricle Normal right ventricular cavity size. There is mildly decreased right ventricular systolic function. Atria The left atrium is mildly dilated. There is no evidence of interatrial shunt. The right atrium is likely dilated. Aortic Valve There is mild calcification of the aortic valve. There is no aortic valve stenosis. There is no aortic valve regurgitation. Mitral Valve There is mild anterior and posterior mitral leaflet thickening. There is mild to moderate mitral valve regurgitation. There is no mitral valve stenosis. Pulmonic Valve The pulmonic valve is likely normal. Tricuspid Valve Normal tricuspid valve structure. There is mild tricuspid valve regurgitation. The right ventricular systolic pressure is normal. The right ventricular systolic pressure is 25 mmHg. Normal right atrial pressure. There is no evidence of pulmonary hypertension. Great Vessels The pulmonary artery was not well visualized. There is mild dilatation of the ascending aorta measuring 3.70 cm. Venous The inferior vena cava is normal in size and collapses greater than 50% with inspiration. Pericardium/Pleural There is no evidence of pericardial effusion. Prior Study Comparison Changes noted compared to prior study dated: 04/24/2022. LV ejection fraction is measured to be 25-30% on this study Measurements 2D Linear Measurements IVSd: 1.20 0.6-0.9/0.6-1.0 cm LVIDd: 6.81 3.9-5.3/4.2-5.9 cm LVIDd Index: 3.27 2.4-3.2/2.2-3.1 cm/m2 LVIDs: 5.47 2.0-3.6 cm LVPWd: 1.02 0.7-1.1 cm LA Diam: 4.10 2.7-3.8/3.0-4.0 cm LAIDs Index: 1.97 1.5-2.3 cm/m2 LV Mass: 437.31 67-162/88-224 g LV Mass Index: 210.25 43-95/49-115 g/m2 LVOT Diam: 2.30 3.0+(-)1.3 cm 2D Systolic Function EF 4C: 30.00 >55% EF 2C: 33.70 >55% Mitral Valve MV Pk E: 0.92 MV PK A: 0.38 MV Decel Time: 171.00 E/A: 2.40 E'Lateral: 7.18 E'Medial: 3.81 E/E' Med: 24.20 E/E' Lat: 12.80 PHT: 50.00 MVA PHT: 4.40 Decel [place]: 5.39 MR Vol - PW Dopp: 27.36 MR VTI: 1.71 MR ERO: 16.00 MR Alias Sanjay: 0.35 MR RAD: 0.60 Aortic Valve AoV Pk Sanjay: 1.15 AoV Mn Sanjay: 0.94 AoV VTI: 0.24 AoV Pk Grad: 5.00 Aov Mn Grad: 4.00 PAU Cont.VTI: 2.53 LVOT LVOT Pk Sanjay: 0.71 LVOT Mn Sanjay: 0.50 LVOT VTI: 0.14 LVOT Pk Grad: 2.00 LVOT Mn Grad: 1.00 LVOT Diam: 2.30 LVOT Area: 4.15 Diastolic Function MV Pk E: 0.92 MV Pk A: 0.38 E/A: 2.40 E'Medial: 3.81 E/E' Med: 24.20 E' Laterial: 7.18 E/E' Lat: 12.80 Right Ventricle TAPSE (mm): 15.30 TVS' Sanjay: 9.36 Tricuspid Valve TR Pk Sanjay: 2.32 TR Pk Grad: 22.00 RA Press: 3.00 RVSP: 25.00 Great Vessels Aorta Sinus of Valsalva: 4.57 2.0-3.[address] [place]: 3.37 1.7-3.4 cm Ao Asc: 3.70 2.1-3.4 cm Updated in Other Vendor System with Status of Final Andre Collier MD electronically signed on 12/20/2022 9:11:24 AM with status of Final
== END ==
LOC: HO.CARD 13:13
PROVIDERS: PCP Internal Medicine; Visit Provider Internal Medicine
DX: I50.42 Chronic combined systolic (congestive) and diastolic (congestive) heart failure (principal)
CPT/HCPCS: 93306

== ENCOUNTER 2022-12-26 10:44 | Outpatient (REF) | payer OTHER, SELFPAY ==
[2022-12-26 13:42] LABS: Alanine Aminotransferase 10 U/L (0-40); Albumin Level 3.8 g/dL (3.5-5.0); Alkaline Phosphatase 107 U/L (39-117); Anion Gap 12 (12-20); Aspartate Amino Transferase 13 U/L (5-37); Bilirubin Total 1.2 mg/dL (0.0-1.0); Blood Urea Nitrogen 19 mg/dL (9-16); Carbon Dioxide 29 mmol/L (22-29); Chloride 104 mmol/L (96-108); Estimated Glomerular Filt Rate > 60; Glucose Random 98 mg/dL (60-115); Sodium 141 mmol/L (135-145); Total Protein 6.5 g/dL (6.5-8.0)
[2022-12-26 13:46] LABS: B Type Natriuretic Peptide 229 pg/mL (<100)
== END 2022-12-26 10:45 | disposition home or self-care (01) ==
LOC: HO.XRAY 10:44
PROVIDERS: PCP Internal Medicine; Visit Provider Internal Medicine
DX: I42.9 Cardiomyopathy, unspecified (principal); N18.9 Chronic kidney disease, unspecified
CPT/HCPCS: 36415; 80053; 83880

== ENCOUNTER → 2023-01-29 13:29 | Outpatient (BNVA) | payer OTHER, SELFPAY | PROVIDERS: PCP Internal Medicine; Referring Provider Internal Medicine; Visit Provider Internal Medicine | DX: Z45.02 Encounter for adjustment and management of automatic implantable cardiac defibrillator (principal); I11.0 Hypertensive heart disease with heart failure; I50.42 Chronic combined systolic (congestive) and diastolic (congestive) heart failure; I25.10 Atherosclerotic heart disease of native coronary artery without angina pectoris; F14.10 Cocaine abuse, uncomplicated | CPT/HCPCS: 93005; 99212 ==

== ENCOUNTER → 2023-05-23 23:59 | Outpatient (BNV) | payer OTHER, SELFPAY ==
--- NOTE | 2023-05-26 12:46 | A.OFFVIS_ITS ---
Intake Intake Visit Reasons: Remote ICD Check- [facility] Allergies No Known Allergies Allergy (Verified 01/29/23 13:58) [facility] Medical History (Updated 05/16/22 @ 15:09 by Chao Mcdonough MD) Atherosclerotic cardiovascular disease Chronic combined systolic and diastolic CHF (congestive heart failure) Essential hypertension Gout Heart failure Pulmonary hypertension Surgical History History of implantable cardioverter-defibrillator (ICD) placement (~11/04/21) Family History Father No problems noted. Mother No problems noted. Social History (Updated 01/29/23 @ 14:00 by Fátima Ha) Household Members: Spouse Housing: House Do you presently have visiting nurse or other home services: No Alcohol intake: current Alcohol intake frequency: a few times a week Patient Tobacco Use Status: Former Tobacco user Substance Use Type: Crack/Cocaine service: No Current occupational status: employed Office Procedures Cardiac Device Check Cardiac Device Check Details: Date of service 05/23/2023; Battery life >8 years; normal lead parameters; no treated VT/VF; ; normal ICD function. [id number] Cardiac Interrogation, implant defibrillator w/interim Procedure code (CPT) selection complete Assessment & Plan Assessment & Plan (1) Chronic combined systolic and diastolic CHF (congestive heart failure): Code(s): I50.42 - Chronic combined systolic (congestive) and diastolic (congestive) heart failure Coding Level of Care Code Procedure Only Diagnoses Chronic combined systolic and diastolic CHF (congestive heart failure) I50.42 CPT Codes Cardiac Device Check - Cardiac Device 13: [id number] Cardiac Interrogation, implant defibrillator w/interim ([id number])
== END ==
PROVIDERS: PCP Internal Medicine; Visit Provider Internal Medicine
DX: I50.42 Chronic combined systolic (congestive) and diastolic (congestive) heart failure (principal); Z95.810 Presence of automatic (implantable) cardiac defibrillator
CPT/HCPCS: 93295

== ENCOUNTER 2023-06-11 13:08 | Outpatient (REF) | payer OTHER, SELFPAY ==
[2023-06-11 13:26] LABS: MANUAL DIFF FLAG NO
[2023-06-11 13:35] LABS: Basophils Percent Auto 0.4 % (0-2); Eosinophils Absolute Auto 0.2 X10*3/uL (0.0-0.4); Eosinophils Percent Auto 3.2 % (0-4); Hematocrit 47.2 % (42.0-52.0); Hemoglobin 15.7 g/dl (14.0-18.0); Imm Gran Abs Auto 0.03 X10*3/uL (0.00-0.03); Imm Gran Pct Auto 0.4 % (0.0-0.4); Lymphocytes Absolute Auto 1.2 X10*3/uL (1.2-4.9); Lymphocytes Percent Auto 16.4 % (20-40); Mean Corpuscular HGB Conc 33.3 g/dl (31.0-36.0); Mean Corpuscular Hemoglobin 30.3 pg (27.0-33.0); Mean Corpuscular Volume 91.1 fL (80.0-98.0); Mean Platelet Volume 10.4 fL (9.4-12.4); Monocytes Absolute Auto 0.7 X10*3/uL (0.1-1.2); Monocytes Percent Auto 9.4 % (2-11); Neutrophils Percent Auto 70.2 % (45-73); Platelet Count 307 X10*3/uL (160-400); Red Blood Count 5.18 X10*6/uL (4.60-5.80); Red Cell Distribution Width 12.4 % (11.0-16.0); White Blood Count 7.1 X10*3/uL (4.8-10.8)
[2023-06-11 14:41] LABS: Alanine Aminotransferase 11 U/L (0-40); Albumin Level 3.8 g/dL (3.5-5.0); Alkaline Phosphatase 113 U/L (39-117); Anion Gap 12 (12-20); Aspartate Amino Transferase 13 U/L (5-37); Bilirubin Total 0.9 mg/dL (0.0-1.0); Blood Urea Nitrogen 18 mg/dL (9-16); Calcium 9.5 mg/dL (8.4-10.2); Carbon Dioxide 27 mmol/L (22-29); Chloride 107 mmol/L (96-108); Cholesterol 166 mg/dL (<200); Estimated Glomerular Filt Rate > 60; Glucose Fasting 104 mg/dL (60-99); HDL Cholesterol 49 mg/dL (>40); LDL Cholesterol Calculated 99 mg/dL (<100); Potassium 4.5 mmol/L (3.3-5.1); Sodium 141 mmol/L (135-145); Total Protein 7.3 g/dL (6.5-8.0); Triglycerides 94 mg/dL (<150); Uric Acid 10.3 mg/dL (3.4-7.0)
[2023-06-11 14:49] LABS: Prostate Specific Antigen 0.39 ng/mL (<0.05-4.0)
[2023-06-11 14:54] LABS: Appearance Urine Clear; Color Urine Yellow; Glucose Urine UA >=1000 mg/dL (Negative); Leukocyte Esterase Urine Negative (Negative); Nitrite Urine Negative (Negative); Specific Gravity - Urine 1.025 (1.005-1.025); UMIC TRIGGER UA YES; Urine Blood Negative (Negative); Urine Ketones Negative (Negative); Urine Protein 100 (2+) mg/dL (Neg-Trace)
[2023-06-11 15:13] LABS: Bacteria Urine None Seen (None Seen); Hyaline Casts Urine 0-2 /LPF (0-2); RBC Urine 0-2 /HPF (0-2); Squamous Epithelial Cell Urine 0-2 /HPF (0-2)
[2023-06-11 15:28] LABS: Amphetamine Screen Urine Not Detected (Not Detect); Barbiturates, Urine Not Detected (Not Detect); Benzodiazepines Screen Urine Not Detected (Not Detect); Cannabinoid Screen Urine Not Detected (Not Detect); Cocaine Screen Urine POSITIVE (Not Detect); Fentanyl, urine Not Detected (Not Detect); Opiate Screen Urine Not Detected (Not Detect); Phencyclidine Screen Urine Not Detected (Not Detect)
== END 2023-06-11 13:09 | disposition home or self-care (01) ==
LOC: HO.LAB 13:08
PROVIDERS: PCP Internal Medicine; Visit Provider Internal Medicine
DX: I12.9 Hypertensive chronic kidney disease with stage 1 through stage 4 chronic kidney disease, or unspecified chronic kidney disease (principal); N18.9 Chronic kidney disease, unspecified; I42.9 Cardiomyopathy, unspecified; M10.9 Gout, unspecified
CPT/HCPCS: 80053; 80061; 80307; 81001; 84153; 84550; 85025

== ENCOUNTER → 2023-06-29 23:59 | Outpatient (BNV) | payer OTHER, SELFPAY ==
--- NOTE | 2023-07-03 14:06 | MHC.OFFVIS ---
Intake Intake Visit Reasons: Remote ICD Check- [facility] Allergies No Known Allergies Allergy (Verified 01/29/23 13:58) [facility] Medical History (Updated 05/16/22 @ 15:09 by Chao Mcdonough MD) Essential hypertension Chronic combined systolic and diastolic CHF (congestive heart failure) Pulmonary hypertension Atherosclerotic cardiovascular disease Gout Heart failure Surgical History History of implantable cardioverter-defibrillator (ICD) placement (~11/04/21) Family History Father No problems noted. Mother No problems noted. Social History (Updated 01/29/23 @ 14:00 by Fátima Ha) Household Members: Spouse Housing: House Do you presently have visiting nurse or other home services: No Alcohol intake: current Alcohol intake frequency: a few times a week Patient Tobacco Use Status: Former Tobacco user Substance Use Type: Crack/Cocaine service: No Current occupational status: employed Office Procedures Cardiac Device Check Cardiac Device Check Details: Date of service 06/29/2023; Battery life >8 years; normal lead parameters; no treated VT/VF; ; normal ICD function. [id number] Cardiac Interrogation, implant defibrillator w/interim Procedure code (CPT) selection complete Assessment & Plan Assessment & Plan (1) Chronic combined systolic and diastolic CHF (congestive heart failure): Code(s): I50.42 - Chronic combined systolic (congestive) and diastolic (congestive) heart failure Coding Level of Care Code Procedure Only Diagnoses Chronic combined systolic and diastolic CHF (congestive heart failure) I50.42 CPT Codes Cardiac Device Check - Cardiac Device 13: [id number] Cardiac Interrogation, implant defibrillator w/interim ([id number])
== END ==
PROVIDERS: PCP Internal Medicine; Visit Provider Internal Medicine
DX: I50.42 Chronic combined systolic (congestive) and diastolic (congestive) heart failure (principal); Z95.810 Presence of automatic (implantable) cardiac defibrillator
CPT/HCPCS: 93295

== ENCOUNTER 2023-08-06 13:45 | Outpatient (AMB) | payer OTHER, SELFPAY ==
--- NOTE | 2023-08-06 13:47 | A.OFFVIS_ITS ---
Intake Vital Signs 08/06/23 13:48 Height 5 ft 6 in Weight 223 lb 8.78 oz BMI 36.1 BP 112/72 Blood Pressure Location Lt brachial Position Sitting Pulse 84 Intake Visit Reasons: 6 month follow up Intake Note: 6 month follow up Commercial Driver'S License Driver Required: No Accompanied by: Self / Same As Patient Allergies No Known Allergies Allergy (Verified 08/06/23 13:50) Medication List - Last Reconciled 08/06/23 by Chao Mcdonough MD allopurinol 300 mg PO DAILY bumetanide 3 mg (3 x 1 mg) PO BID 90 days carvedilol (Coreg) 25 mg PO BID 90 days dapagliflozin propanediol (Farxiga) 10 mg PO DAILY sacubitril-valsartan 49-51 mg (Entresto) 1 tab PO BID 90 days HPI HPI Comments History of Present Illness Details Dom returns for follow-up regarding cardiomyopathy. Overall, feels just about the same as before. Shortness of breath is at baseline. No new concerns otherwise. [facility] Medical History (Updated 05/16/22 @ 15:09 by Chao Mcdonough MD) Essential hypertension Chronic combined systolic and diastolic CHF (congestive heart failure) Pulmonary hypertension Atherosclerotic cardiovascular disease Gout Heart failure Surgical History History of implantable cardioverter-defibrillator (ICD) placement (~11/04/21) Family History Father No problems noted. Mother No problems noted. Social History Household Members: Spouse Housing: House Do you presently have visiting nurse or other home services: No Alcohol intake: current Alcohol intake frequency: a few times a week Patient Tobacco Use Status: Former Tobacco user Substance Use Type: Crack/Cocaine service: No Current occupational status: employed Review of Systems Const Denies weakness ENT Denies dizziness Card Denies chest pain, Denies chest pain with activity, Denies syncope, Denies rapid heart rate, Denies pedal edema, Denies edema, Denies leg edema, Denies ligh theadedness, Denies palpitations, Denies dyspnea, Denies dyspnea on exertion and Denies orthopnea Resp Denies cough, Denies dyspnea and Denies dyspnea on exertion GI Denies hematochezia and Denies change in stool character Musc Denies abnormal gait, Denies muscle cramps, Denies muscle weakness, Denies numbness, Denies radiating pain into limb and Denies tingling Neuro Denies abnormal gait, Denies dizziness, Denies syncope, Denies numbness, Denies tingling and Denies weakness Endo Denies palpitations Physical Exam Vital Signs: Last Vital Signs Pulse 84 08/06/23 13:48 BP 112/72 08/06/23 13:48 BMI result Body Mass Index 36.1 Const General: comfortable and no acute distress Orientation/consciousness: patient oriented x3 HEENT Other: Unremarkable Head: Yes normal to inspection Neck Neck: Yes normal visual inspection Chest Chest palpation & inspection: normal inspection of the chest Resp Auscultation: clear to auscultation bilaterally Cardio Palpation: normal PMI Heart sounds: S1 normal heart sound present, S2 normal heart sound present, no gallops, no murmurs and no rubs GI Palpation (GI): Soft to palpation Back/Spine/Pelvis Other: unremarkable Skin General skin exam: no rashes or lesions noted Neuro General: patient oriented x3 Extrem General: Yes normal to inspection Psych Mental Status: mental status grossly normal Assessment & Plan Assessment & Plan (1) Chronic combined systolic and diastolic CHF (congestive heart failure): Code(s): I50.42 - Chronic combined systolic (congestive) and diastolic (congestive) heart failure Plan: Most recent echocardiogram with LVEF of 25-30% with advanced diastolic dysfunction. [id number] mitral regurgitation. Clinically, NYHA class 2 symptoms. Continue Coreg, Entresto, Farxiga, diuretics. Labs are stable. Most recent cardiac BNP is 229. In the past, as much as 3400. (2) Atherosclerotic cardiovascular disease: Comment: Cardiac catheterization from 2018-mild LAD disease but otherwise unremarkable. Code(s): I25.10 - Atherosclerotic heart disease of [place] coronary artery without angina pectoris Plan: No angina or other concerning symptoms. No specific management. (3) Essential hypertension: Code(s): I10 - Essential (primary) hypertension Plan: Stable. No changes. (4) Cocaine use: Code(s): F14.90 - Cocaine use, unspecified, uncomplicated Plan: No recent use. Again discussed about avoiding drugs. (5) ICD (implantable cardioverter-defibrillator) in place: Code(s): Z95.810 - Presence of automatic (implantable) cardiac defibrillator Plan: Being followed remotely. Coding Level of Care Code Est Pt Level 4 (67869) Diagnoses Chronic combined systolic and diastolic CHF (congestive heart failure) I50.42 Atherosclerotic cardiovascular disease I25.10 Essential hypertension I10 Cocaine use F14.90 ICD (implantable cardioverter-defibrillator) in place Z95.810
[2023-08-06 13:48] VITALS: BP 112/72; PULSE 84; BMI 36.1
== END 2023-08-06 14:09 | disposition home or self-care (01) ==
PROVIDERS: Visit Provider Internal Medicine
DX: I50.42 Chronic combined systolic (congestive) and diastolic (congestive) heart failure (principal); I25.10 Atherosclerotic heart disease of native coronary artery without angina pectoris; I10 Essential (primary) hypertension; F14.90 Cocaine use, unspecified, uncomplicated; Z95.810 Presence of automatic (implantable) cardiac defibrillator
CPT/HCPCS: 99214

== ENCOUNTER → 2023-08-06 13:45 | Outpatient (BNVA) | payer OTHER, SELFPAY | PROVIDERS: Visit Provider Internal Medicine | DX: I11.0 Hypertensive heart disease with heart failure (principal); I50.42 Chronic combined systolic (congestive) and diastolic (congestive) heart failure; I25.10 Atherosclerotic heart disease of native coronary artery without angina pectoris; F14.90 Cocaine use, unspecified, uncomplicated; Z95.810 Presence of automatic (implantable) cardiac defibrillator | CPT/HCPCS: 99212 ==

== ENCOUNTER 2023-08-30 13:05 | Outpatient (REF) | payer OTHER, SELFPAY ==
[2023-08-30 15:09] LABS: Anion Gap 16 (12-20); Blood Urea Nitrogen 57 mg/dL (9-16); Calcium 10.1 mg/dL (8.4-10.2); Carbon Dioxide 29 mmol/L (22-29); Chloride 95 mmol/L (96-108); Estimated Glomerular Filt Rate 35; Glucose Random 130 mg/dL (60-115); Potassium 4.6 mmol/L (3.3-5.1); Sodium 135 mmol/L (135-145)
== END 2023-08-30 13:06 | disposition home or self-care (01) ==
LOC: HO.LAB 13:05
PROVIDERS: Visit Provider Internal Medicine
DX: I11.0 Hypertensive heart disease with heart failure (principal); I50.42 Chronic combined systolic (congestive) and diastolic (congestive) heart failure; I25.10 Atherosclerotic heart disease of native coronary artery without angina pectoris
CPT/HCPCS: 36415; 80048

== ENCOUNTER → 2023-09-26 23:59 | Outpatient (BNV) | payer OTHER, SELFPAY ==
--- NOTE | 2023-10-01 18:24 | MHC.OFFVIS ---
Intake Intake Visit Reasons: Remote ICD Check- [facility] Allergies No Known Allergies Allergy (Verified 08/06/23 13:50) [facility] Medical History (Updated 05/16/22 @ 15:09 by Chao Mcdonough MD) Essential hypertension Chronic combined systolic and diastolic CHF (congestive heart failure) Pulmonary hypertension Atherosclerotic cardiovascular disease Gout Heart failure Surgical History History of implantable cardioverter-defibrillator (ICD) placement (~11/04/21) Family History Father No problems noted. Mother No problems noted. Social History Household Members: Spouse Housing: House Do you presently have visiting nurse or other home services: No Alcohol intake: current Alcohol intake frequency: a few times a week Patient Tobacco Use Status: Former Tobacco user Substance Use Type: Crack/Cocaine service: No Current occupational status: employed Office Procedures Cardiac Device Check Cardiac Device Check Details: Date of service 09/26/2023; Battery life >8 years; normal lead parameters; no treated VT/VF; non-sustained episodes; normal ICD function. [id number] Cardiac Interrogation, implant defibrillator w/interim Procedure code (CPT) selection complete Assessment & Plan Assessment & Plan (1) Chronic combined systolic and diastolic CHF (congestive heart failure): Code(s): I50.42 - Chronic combined systolic (congestive) and diastolic (congestive) heart failure Plan x Coding Level of Care Code Procedure Only Diagnoses Chronic combined systolic and diastolic CHF (congestive heart failure) I50.42 CPT Codes Cardiac Device Check - Cardiac Device 13: [id number] Cardiac Interrogation, implant defibrillator w/interim ([id number])
== END ==
PROVIDERS: PCP Internal Medicine; Visit Provider Internal Medicine
DX: I50.42 Chronic combined systolic (congestive) and diastolic (congestive) heart failure (principal); Z95.810 Presence of automatic (implantable) cardiac defibrillator
CPT/HCPCS: 93295

== ENCOUNTER 2023-10-11 15:23 | Outpatient (REF) | payer OTHER, SELFPAY ==
[2023-10-11 15:38] LABS: MANUAL DIFF FLAG NO
[2023-10-11 16:01] LABS: Basophils Percent Auto 0.3 % (0-2); Eosinophils Absolute Auto 0.1 X10*3/uL (0.0-0.4); Hematocrit 38.4 % (42.0-52.0); Imm Gran Abs Auto 0.07 X10*3/uL (0.00-0.03); Imm Gran Pct Auto 0.6 % (0.0-0.4); Lymphocytes Absolute Auto 1.2 X10*3/uL (1.2-4.9); Lymphocytes Percent Auto 10.3 % (20-40); Mean Corpuscular HGB Conc 33.9 g/dl (31.0-36.0); Mean Corpuscular Hemoglobin 30.6 pg (27.0-33.0); Mean Corpuscular Volume 90.4 fL (80.0-98.0); Mean Platelet Volume 10.2 fL (9.4-12.4); Monocytes Absolute Auto 0.6 X10*3/uL (0.1-1.2); Neutrophils Absolute Auto 9.9 x10*3/uL (2.0-8.3); Neutrophils Percent Auto 82.8 % (45-73); Platelet Count 335 X10*3/uL (160-400); Red Blood Count 4.25 X10*6/uL (4.60-5.80); White Blood Count 11.9 X10*3/uL (4.8-10.8)
[2023-10-11 16:36] LABS: Alanine Aminotransferase 9 U/L (0-40); Albumin Level 3.9 g/dL (3.5-5.0); Alkaline Phosphatase 95 U/L (39-117); Anion Gap 15 (12-20); Aspartate Amino Transferase 12 U/L (5-37); Bilirubin Total 0.8 mg/dL (0.0-1.0); Blood Urea Nitrogen 28 mg/dL (9-16); C Reactive Protein 5.83 mg/dL (< or = 0.50); Calcium 9.5 mg/dL (8.4-10.2); Carbon Dioxide 28 mmol/L (22-29); Chloride 102 mmol/L (96-108); Estimated Glomerular Filt Rate 53; Glucose Random 126 mg/dL (60-115); Potassium 4.1 mmol/L (3.3-5.1); Sodium 141 mmol/L (135-145); Total Protein 7.4 g/dL (6.5-8.0); Uric Acid 9.8 mg/dL (3.4-7.0)
[2023-10-11 17:17] LABS: Erythrocyte Sedimentation Rate 49 MM/HR (0-15)
[2023-10-11 18:26] LABS: Appearance Urine Clear; Color Urine Yellow; Glucose Urine UA 500 mg/dL (Negative); Leukocyte Esterase Urine Small (1+) (Negative); Nitrite Urine Negative (Negative); PH 5.5 (5.0-9.0); UMIC TRIGGER UA YES; Urine Blood Negative (Negative); Urine Ketones Negative (Negative); Urine Protein 30 (1+) mg/dL (Neg-Trace)
[2023-10-11 18:28] LABS: Bacteria Urine None Seen (None Seen); Hyaline Casts Urine 0-2 /LPF (0-2); RBC Urine 0-2 /HPF (0-2); Squamous Epithelial Cell Urine 0-2 /HPF (0-2)
[2023-10-11 18:33] LABS: Amphetamine Screen Urine Not Detected (Not Detect); Barbiturates, Urine Not Detected (Not Detect); Benzodiazepines Screen Urine Not Detected (Not Detect); Cannabinoid Screen Urine Not Detected (Not Detect); Cocaine Screen Urine POSITIVE (Not Detect); Fentanyl, urine Not Detected (Not Detect); Opiate Screen Urine POSITIVE (Not Detect); Phencyclidine Screen Urine Not Detected (Not Detect)
== END 2023-10-11 15:24 | disposition home or self-care (01) ==
LOC: HO.LAB 15:23
PROVIDERS: PCP Internal Medicine; Visit Provider Internal Medicine
DX: I11.0 Hypertensive heart disease with heart failure (principal); I50.9 Heart failure, unspecified; R79.89 Other specified abnormal findings of blood chemistry; I42.8 Other cardiomyopathies
CPT/HCPCS: 80053; 80307; 81001; 84550; 85025; 85652; 86140

== ENCOUNTER 2023-10-23 16:49 | Emergency (ER) | payer OTHER, SELFPAY | END 2023-10-23 21:24 | disposition left against medical advice (07) | PROVIDERS: Emergency Provider Emergency Medicine; PCP Internal Medicine | DX: M79.605 Pain in left leg (principal); Z53.21 Procedure and treatment not carried out due to patient leaving prior to being seen by health care provider ==

== ENCOUNTER 2024-02-05 14:09 | Outpatient (AMB) | payer OTHER, SELFPAY ==
[2024-02-05 14:12] VITALS: BP 109/80; PULSE 80; BMI 34.9
--- NOTE | 2024-02-05 14:12 | MHC.OFFVIS ---
Vital Signs 02/05/24 14:12 Height 5 ft 6 in Weight 216 lb 0.848 oz BMI 34.9 BP 109/80 Blood Pressure Location Lt brachial Position Sitting Pulse 80 Intake Visit Reasons: 6 mth f/up Structures Assembler Required: No Accompanied by: Self / Same As Patient Allergies No Known Allergies Allergy (Verified 08/06/23 13:50) Medication List - Last Reconciled 02/05/24 by Chao Mcdonough MD allopurinol 300 mg PO DAILY bumetanide 3 mg (3 x 1 mg) PO BID 90 days carvedilol (Coreg) 25 mg PO BID 90 days sacubitril-valsartan 49-51 mg (Entresto) 1 tab PO BID 90 days HPI Comments Details: Dom returns for follow-up regarding cardiomyopathy. Overall, feels just about the same as before. Shortness of breath is at baseline. No new concerns otherwise. [facility] Medical History (Updated 05/16/22 @ 15:09 by Chao Mcdonough MD) Essential hypertension Chronic combined systolic and diastolic CHF (congestive heart failure) Pulmonary hypertension Atherosclerotic cardiovascular disease Gout Heart failure Surgical History History of implantable cardioverter-defibrillator (ICD) placement (~11/04/21) Family History Father No problems noted. Mother No problems noted. Social History Household Members: Spouse Housing: House Do you presently have visiting nurse or other home services: No Alcohol intake: current Alcohol intake frequency: a few times a week Patient Tobacco Use Status: Former Tobacco user Substance Use Type: Crack/Cocaine service: No Current occupational status: employed Review of Systems Const Denies chills, Denies fatigue, Denies fever(s), Denies frequent falls, Denies weakness, Denies weight gain and Denies weight loss ENT Denies dizziness Card Denies chest pain, Denies leg edema, Denies lightheadedness, Denies palpitations, Denies dyspnea and Denies dyspnea on exertion Resp Denies cough, Denies dyspnea and Denies dyspnea on exertion GI Denies hematochezia Musc Denies abnormal gait, Denies muscle weakness, Denies numbness, Denies radiating pain into limb and Denies tingling Neuro Denies abnormal gait, Denies dizziness, Denies frequent falls, Denies numbness, Denies tingling and Denies weakness Endo Denies fatigue and Denies palpitations Physical Exam Vital Signs: Last Vital Signs Pulse 80 02/05/24 14:12 BP 109/80 02/05/24 14:12 BMI result Body Mass Index 34.9 Const General: comfortable and no acute distress Orientation/consciousness: patient oriented x3 HEENT Other: Unremarkable Head: Yes normal to inspection Neck Neck: Yes normal visual inspection Chest Chest palpation & inspection: normal inspection of the chest Resp Auscultation: clear to auscultation bilaterally Cardio Palpation: normal PMI Heart sounds: S1 normal heart sound present, S2 normal heart sound present, no gallops, no murmurs and no rubs GI Palpation (GI): Soft to palpation Back/Spine/Pelvis Other: unremarkable Skin General skin exam: no rashes or lesions noted Neuro General: patient oriented x3 Extrem General: Yes normal to inspection Psych Mental Status: mental status grossly normal Office Procedures EKG Details: EKG today with sinus rhythm at 80/Min; voltage criteria for LVH vs left anterior fascicular block; [place]. [id number], Complete Assessment & Plan Assessment & Plan (1) Chronic combined systolic and diastolic CHF (congestive heart failure): Code(s): I50.42 - Chronic combined systolic (congestive) and diastolic (congestive) heart failure Category: Medical Plan: Last echocardiogram with LVEF of 25-30% with advanced diastolic dysfunction. [id number] mitral regurgitation. Clinically, NYHA class 2 symptoms. Continue Coreg, Entresto, diuretics. Current dose of Bumex. Farxiga is no longer on his list. Not clear why. (2) Atherosclerotic cardiovascular disease: Comment: Cardiac catheterization from 2018-mild LAD disease but otherwise unremarkable. Code(s): I25.10 - Atherosclerotic heart disease of [place] coronary artery without angina pectoris Category: Medical Plan: No angina or other concerning symptoms. No specific management. (3) Essential hypertension: Code(s): I10 - Essential (primary) hypertension Category: Medical Plan: Stable. No changes. (4) Cocaine use: Code(s): F14.90 - Cocaine use, unspecified, uncomplicated Category: Social Hx Plan: Strongly advised to avoid this in the future. (5) ICD (implantable cardioverter-defibrillator) in place: Code(s): Z95.810 - Presence of automatic (implantable) cardiac defibrillator Category: Medical Plan: Being followed remotely. Orders: Orders CA echo transthoracic complete 6 Months I50.42 - Chronic combined systolic (congestive) and diastolic (congestive) heart failure Coding Level of Care Code Est Pt Level 4 (52370) Diagnoses Chronic combined systolic and diastolic CHF (congestive heart failure) I50.42 Atherosclerotic cardiovascular disease I25.10 Essential hypertension I10 Cocaine use F14.90 ICD (implantable cardioverter-defibrillator) in place Z95.810 CPT Codes EKG - CPT: 74713-[id number], Complete ([id number])
== END 2024-02-05 14:26 | disposition home or self-care (01) ==
LOC: HO.HCS 14:09
PROVIDERS: PCP Internal Medicine; Visit Provider Internal Medicine
DX: I50.42 Chronic combined systolic (congestive) and diastolic (congestive) heart failure (principal); I25.10 Atherosclerotic heart disease of native coronary artery without angina pectoris; I10 Essential (primary) hypertension; F14.90 Cocaine use, unspecified, uncomplicated; Z95.810 Presence of automatic (implantable) cardiac defibrillator
CPT/HCPCS: 93010; 99214

== ENCOUNTER → 2024-02-05 14:09 | Outpatient (BNVA) | payer OTHER, SELFPAY | PROVIDERS: PCP Internal Medicine; Visit Provider Internal Medicine | DX: I11.0 Hypertensive heart disease with heart failure (principal); I50.42 Chronic combined systolic (congestive) and diastolic (congestive) heart failure; I25.10 Atherosclerotic heart disease of native coronary artery without angina pectoris; F14.90 Cocaine use, unspecified, uncomplicated; Z95.810 Presence of automatic (implantable) cardiac defibrillator | CPT/HCPCS: 93005; 99212 ==

== ENCOUNTER 2024-04-09 13:39 | Outpatient (REF) | payer OTHER, SELFPAY ==
[2024-04-09 13:56] LABS: MANUAL DIFF FLAG NO
[2024-04-09 15:13] LABS: Estimated Average Glucose 105 mg/dL; Hemoglobin A1c % 5.3 % (<6.0)
[2024-04-09 15:17] LABS: Basophils Percent Auto 0.2 % (0-2); Eosinophils Absolute Auto 0.2 X10*3/uL (0.0-0.4); Eosinophils Percent Auto 1.4 % (0-4); Hematocrit 47.4 % (42.0-52.0); Hemoglobin 15.9 g/dl (14.0-18.0); Imm Gran Abs Auto 0.05 X10*3/uL (0.00-0.03); Imm Gran Pct Auto 0.5 % (0.0-0.4); Lymphocytes Percent Auto 9.5 % (20-40); Mean Corpuscular HGB Conc 33.5 g/dl (31.0-36.0); Mean Corpuscular Hemoglobin 30.5 pg (27.0-33.0); Mean Platelet Volume 11.4 fL (9.4-12.4); Monocytes Absolute Auto 0.6 X10*3/uL (0.1-1.2); Monocytes Percent Auto 5.7 % (2-11); Neutrophils Absolute Auto 8.8 x10*3/uL (2.0-8.3); Neutrophils Percent Auto 82.7 % (45-73); Platelet Count 329 X10*3/uL (160-400); Red Blood Count 5.21 X10*6/uL (4.60-5.80); Red Cell Distribution Width 13.5 % (11.0-16.0); White Blood Count 10.7 X10*3/uL (4.8-10.8)
[2024-04-09 15:44] LABS: Alanine Aminotransferase 16 U/L (0-40); Albumin Level 3.9 g/dL (3.5-5.0); Alkaline Phosphatase 129 U/L (39-117); Anion Gap 13 (12-20); Aspartate Amino Transferase 17 U/L (5-37); Bilirubin Total 2.4 mg/dL (0.0-1.0); Blood Urea Nitrogen 21 mg/dL (9-16); Calcium 9.4 mg/dL (8.4-10.2); Carbon Dioxide 27 mmol/L (22-29); Chloride 105 mmol/L (96-108); Estimated Glomerular Filt Rate 48; Glucose Random 125 mg/dL (60-115); Iron 60 mcg/dL (45-160); Percent Iron Saturation 23 % (15-50); Potassium 4.3 mmol/L (3.3-5.1); Sodium 141 mmol/L (135-145); Total Iron Binding Capacity 259 mcg/dL (228-428); Total Protein 7.5 g/dL (6.5-8.0); Unsaturated Iron Binding 199 ug/dL; Uric Acid 8.4 mg/dL (3.4-7.0)
[2024-04-09 18:04] LABS: Amphetamine Screen Urine Not Detected (Not Detect); Barbiturates, Urine Not Detected (Not Detect); Benzodiazepines Screen Urine Not Detected (Not Detect); Buprenorphine Scr Not Detected (Not Detect); Cannabinoid Screen Urine Not Detected (Not Detect); Cocaine Screen Urine POSITIVE (Not Detect); Fentanyl, urine Not Detected (Not Detect); Methadone Screen, Urine Not Detected (Not Detect); Opiate Screen Urine Not Detected (Not Detect); Oxycodone Screen Urine Not Detected (Not Detect); Phencyclidine Screen Urine Not Detected (Not Detect)
[2024-04-09 18:17] LABS: Creatinine Urine 168.81 mg/dL
[2024-04-09 18:42] LABS: Microalbum/Creatinine Ratio Ur 1184.7 ug/mg cr (<30); Microalbumin Urine > 2000.0 mg/L
== END 2024-04-09 13:40 | disposition home or self-care (01) ==
LOC: HO.LAB 13:39
PROVIDERS: PCP Internal Medicine; Visit Provider Internal Medicine
DX: M10.9 Gout, unspecified (principal); R73.03 Prediabetes; N18.9 Chronic kidney disease, unspecified; I42.9 Cardiomyopathy, unspecified
CPT/HCPCS: 80053; 80307; 82043; 82570; 83036; 83540; 84550; 85025

== ENCOUNTER → 2024-06-19 23:59 | Outpatient (BNV) | payer OTHER, SELFPAY ==
--- NOTE | 2024-06-22 10:05 | MHC.OFFVIS ---
Intake Visit Reasons: REmote ICD check- [facility] Allergies No Known Allergies Allergy (Verified 08/06/23 13:50) [facility] Medical History (Updated 05/16/22 @ 15:09 by Chao Mcdonough MD) Essential hypertension Chronic combined systolic and diastolic CHF (congestive heart failure) Pulmonary hypertension Atherosclerotic cardiovascular disease Gout Heart failure Surgical History History of implantable cardioverter-defibrillator (ICD) placement (~11/04/21) Family History Father No problems noted. Mother No problems noted. Social History Household Members: Spouse Housing: House Do you presently have visiting nurse or other home services: No Alcohol intake: current Alcohol intake frequency: a few times a week Patient Tobacco Use Status: Former Tobacco user Substance Use Type: Crack/Cocaine service: No Current occupational status: employed Office Procedures Cardiac Device Check Cardiac Device Check Details: Date of service 06/19/2024; Battery life >7 years; normal lead parameters; no treated VT/VF; ; normal ICD function. [id number] Cardiac Interrogation, implant defibrillator w/interim Procedure code (CPT) selection complete Assessment & Plan Assessment & Plan (1) Chronic combined systolic and diastolic CHF (congestive heart failure): Code(s): I50.42 - Chronic combined systolic (congestive) and diastolic (congestive) heart failure Category: Medical Plan x Coding Level of Care Code Procedure Only Diagnoses Chronic combined systolic and diastolic CHF (congestive heart failure) I50.42 CPT Codes Cardiac Device Check - Cardiac Device 13: [id number] Cardiac Interrogation, implant defibrillator w/interim ([id number])
== END ==
PROVIDERS: PCP Internal Medicine; Visit Provider Internal Medicine
DX: I50.42 Chronic combined systolic (congestive) and diastolic (congestive) heart failure (principal); Z95.810 Presence of automatic (implantable) cardiac defibrillator
CPT/HCPCS: 93295

== ENCOUNTER 2024-06-26 15:44 | Outpatient (REF) | payer OTHER, SELFPAY ==
[2024-06-26 16:01] LABS: MANUAL DIFF FLAG NO
[2024-06-26 18:14] LABS: Basophils Percent Auto 0.5 % (0-2); Eosinophils Absolute Auto 0.3 X10*3/uL (0.0-0.4); Eosinophils Percent Auto 3.4 % (0-4); Hemoglobin 17.9 g/dl (14.0-18.0); Imm Gran Abs Auto 0.02 X10*3/uL (0.00-0.03); Imm Gran Pct Auto 0.2 % (0.0-0.4); Lymphocytes Absolute Auto 1.8 X10*3/uL (1.2-4.9); Lymphocytes Percent Auto 21.4 % (20-40); Mean Corpuscular HGB Conc 32.5 g/dl (31.0-36.0); Mean Corpuscular Hemoglobin 29.9 pg (27.0-33.0); Mean Platelet Volume 12.2 fL (9.4-12.4); Monocytes Absolute Auto 0.9 X10*3/uL (0.1-1.2); Monocytes Percent Auto 10.8 % (2-11); Neutrophils Absolute Auto 5.2 x10*3/uL (2.0-8.3); Neutrophils Percent Auto 63.7 % (45-73); Platelet Count 232 X10*3/uL (160-400); Red Blood Count 5.98 X10*6/uL (4.60-5.80); White Blood Count 8.2 X10*3/uL (4.8-10.8)
[2024-06-26 18:36] LABS: Alanine Aminotransferase 16 U/L (0-40); Albumin Level 3.9 g/dL (3.5-5.0); Alkaline Phosphatase 120 U/L (39-117); Anion Gap 14 (12-20); Aspartate Amino Transferase 18 U/L (5-37); Bilirubin Total 1.7 mg/dL (0.0-1.0); Blood Urea Nitrogen 62 mg/dL (9-16); Carbon Dioxide 35 mmol/L (22-29); Chloride 98 mmol/L (96-108); Estimated Glomerular Filt Rate 39; Glucose Random 70 mg/dL (60-115); Potassium 4.1 mmol/L (3.3-5.1); Sodium 143 mmol/L (135-145); Total Protein 7.8 g/dL (6.5-8.0); Uric Acid 14.1 mg/dL (3.4-7.0)
[2024-06-27 05:15] LABS: Estimated Average Glucose 111 mg/dL; Hemoglobin A1c % 5.5 % (<6.0); Total Hemoglobin (HGBA1C) 4420.7184 umol/L
== END 2024-06-26 15:45 | disposition home or self-care (01) ==
LOC: HO.LAB 15:44
PROVIDERS: PCP Internal Medicine; Visit Provider Internal Medicine
DX: M10.9 Gout, unspecified (principal); R73.03 Prediabetes; I50.22 Chronic systolic (congestive) heart failure; G72.89 Other specified myopathies
CPT/HCPCS: 80053; 83036; 84550; 85025

== ENCOUNTER → 2024-07-22 14:07 | Outpatient (REF) | payer OTHER, SELFPAY ==
--- NOTE | 2024-07-22 14:10 | CA_ITS ---
Transthoracic Echocardiogram Patient (Last, First, Middle): Dom Yoder, Gender: Male Date of : 1970 Age: 53 Procedure Date: 07/22/2024 Procedure Type: Transthoracic Echocardiogram Location: OP Height: 167.64 cm Weight: 96.16 kg BSA: 2.05 m2 Heart Rate: bpm BP: 134 / 80 mmHg Customer Project Manager: Referring MD: Chao Mcdonough MD Symptoms: I50.42 - Chronic combined systolic (congestive) and diastolic (congestiv... Study Quality: Adequate ECG Rhythm: Sinus Conclusions: - The left ventricular systolic function is severely decreased. The visually estimated ejection fraction is between 10-15%. - Evidence suggests grade II (moderate) diastolic dysfunction. - No obvious valvular pathology seen on this study. Findings Left Ventricle Severely increased left ventricular cavity size. There is mildly increased left ventricular wall thickness. The left ventricular systolic function is severely decreased. The visually estimated ejection fraction is between 10 15%. There is severe global hypokinesis. E/E prime ratio is >15, consistent with elevated filling pressures. Evidence suggests grade II (moderate) diastolic dysfunction. Right Ventricle Mildly increased right ventricular cavity size. There is mildly decreased right ventricular systolic function. There is an ICD wire seen in the right ventricle. Atria The left atrium is moderately dilated. The right atrium is normal in size. Aortic Valve The aortic valve was not well visualized. There is no aortic valve stenosis. There is no aortic valve regurgitation. Mitral Valve The mitral valve appears normal. There is mild mitral valve regurgitation. There is no mitral valve stenosis. Pulmonic Valve The pulmonic valve is likely normal. Tricuspid Valve Normal tricuspid valve structure. There is trace tricuspid valve regurgitation. There is no evidence of pulmonary hypertension. Great Vessels The asc aorta is normal in size. Venous The inferior vena cava is normal in size and collapses greater than 50% with inspiration. Pericardium/Pleural There is no evidence of pericardial effusion. Prior Study Comparison Changes noted compared to prior study dated: 12/19/2022. LVEF lower than previously reported. Mitral regurgitation seems better. Recommendations, Care & Conclusions No obvious valvular pathology seen on this study. Measurements 2D Linear Measurements IVSd: 1.16 0.6-0.9/0.6-1.0 cm LVIDd: 6.53 3.9-5.3/4.2-5.9 cm LVIDd Index: 3.19 2.4-3.2/2.2-3.1 cm/m2 LVIDs: 6.10 2.0-3.6 cm LVPWd: 1.13 0.7-1.1 cm Ao Root: 3.80 2.1-3.5 cm LA Diam: 4.20 2.7-3.8/3.0-4.0 cm LAIDs Index: 2.05 1.5-2.3 cm/m2 LV Mass: 423.99 67-162/88-224 g LV Mass Index: 206.82 43-95/49-115 g/m2 LVOT Diam: 2.40 3.0+(-)1.3 cm RVOT Diam: 3.00 1.7-2.3 cm 2D Systolic Function EF 4C: 19.40 >55% EF 2C: 17.30 >55% EF BiP: 19.20 >55% Mitral Valve MV Pk E: 1.15 MV PK A: 0.99 MV Decel Time: 138.00 E/A: 1.20 E'Lateral: 4.90 E'Medial: 4.13 E/E' Med: 27.80 E/E' Lat: 23.50 PHT: 40.00 MVA PHT: 5.50 Decel [place]: 8.34 Aortic Valve AoV Pk Sanjay: 1.10 AoV Mn Sanjay: 0.77 AoV VTI: 0.21 AoV Pk Grad: 5.00 Aov Mn Grad: 3.00 PAU Cont.VTI: 3.58 LVOT LVOT Pk Sanjay: 0.89 LVOT Mn Sanjay: 0.58 LVOT VTI: 0.17 LVOT Pk Grad: 3.00 LVOT Mn Grad: 2.00 LVOT Diam: 2.40 LVOT Area: 4.52 Diastolic Function MV Pk E: 1.15 MV Pk A: 0.99 E/A: 1.20 E'Medial: 4.13 E/E' Med: 27.80 E' Laterial: 4.90 E/E' Lat: 23.50 Right Ventricle TAPSE (mm): 15.00 TVS' Sanjay: 9.00 Tricuspid Valve TR Pk Sanjay: 2.00 TR Pk Grad: 16.00 RVOT: 3.00 RVSP: 19.00 Great Vessels Aorta Ao Root-2D: 3.80 2.0-3.7 cm Ao Asc: 3.30 2.1-3.4 cm Pulmonary Valve PV Pk Sanjay: 0.75 Peak PV Grad: 2.00 Updated in Other Vendor System with Status of Final Chao Mcdonough MD electronically signed on 07/23/2024 11:30:32 AM with status of Final
== END ==
LOC: HO.CARD 14:07
PROVIDERS: PCP Internal Medicine; Visit Provider Internal Medicine
DX: I50.42 Chronic combined systolic (congestive) and diastolic (congestive) heart failure (principal)
CPT/HCPCS: 93306

== ENCOUNTER → 2024-07-22 14:10 | Outpatient (BNV) | payer OTHER, SELFPAY | PROVIDERS: PCP Internal Medicine; Visit Provider Internal Medicine | DX: I50.42 Chronic combined systolic (congestive) and diastolic (congestive) heart failure (principal); I34.0 Nonrheumatic mitral (valve) insufficiency | CPT/HCPCS: 93306 ==

== ENCOUNTER 2024-08-14 14:26 | Outpatient (AMB) | payer OTHER, SELFPAY ==
[2024-08-14 14:28] VITALS: BP 120/72; PULSE 76; BMI 36.1
--- NOTE | 2024-08-14 14:28 | MHC.OFFVIS ---
Vital Signs 08/14/24 14:28 Height 5 ft 6 in Weight 223 lb 15.834 oz BMI 36.1 BP 120/72 Blood Pressure Location Lt brachial Position Sitting Pulse 76 Pulse Source Pulse Oximeter Intake Visit Reasons: 6 mth f/up echo Gravity Meter Observer Required: No Accompanied by: Self / Same As Patient Allergies No Known Allergies Allergy (Verified 08/06/23 13:50) Medication List - Last Reconciled 08/14/24 by Chao Mcdonough MD allopurinol 300 mg PO DAILY bumetanide 3 mg (3 x 1 mg) PO BID 90 days carvedilol (Coreg) 25 mg PO BID 90 days dapagliflozin propanediol (Farxiga) 10 mg PO DAILY sacubitril-valsartan 49-51 mg (Entresto) 1 tab PO BID 90 days HPI Comments Details: Dom returns for follow-up regarding cardiomyopathy. He states he is generally feeling well but he has been getting some dizziness. Not clear if there is some dehydration components. From a heart failure standpoint, he is quite stable. [facility] Medical History (Updated 05/16/22 @ 15:09 by Chao Mcdonough MD) Essential hypertension Chronic combined systolic and diastolic CHF (congestive heart failure) Pulmonary hypertension Atherosclerotic cardiovascular disease Gout Heart failure Surgical History History of implantable cardioverter-defibrillator (ICD) placement (~11/04/21) Family History Father No problems noted. Mother No problems noted. Social History Household Members: Spouse Housing: House Do you presently have visiting nurse or other home services: No Alcohol intake: current Alcohol intake frequency: a few times a week Patient Tobacco Use Status: Former Tobacco user Substance Use Type: Crack/Cocaine service: No Current occupational status: employed Review of Systems Const Denies chills, Denies fatigue, Denies fever(s), Denies frequent falls, Denies weakness, Denies weight gain and Denies weight loss ENT Denies dizziness Card Denies chest pain, Denies leg edema, Denies lightheadedness, Denies palpitations, Denies dyspnea and Denies dyspnea on exertion Resp Denies cough, Denies dyspnea and Denies dyspnea on exertion GI Denies hematochezia Musc Denies abnormal gait, Denies muscle weakness, Denies numbness, Denies radiating pain into limb and Denies tingling Neuro Denies abnormal gait, Denies dizziness, Denies frequent falls, Denies numbness, Denies tingling and Denies weakness Endo Denies fatigue and Denies palpitations Physical Exam Vital Signs: Last Vital Signs Pulse 76 08/14/24 14:28 BP 120/72 08/14/24 14:28 BMI result Body Mass Index 36.1 Const General: comfortable and no acute distress Orientation/consciousness: patient oriented x3 HEENT Other: Unremarkable Head: Yes normal to inspection Neck Neck: Yes normal visual inspection Chest Chest palpation & inspection: normal inspection of the chest Resp Auscultation: clear to auscultation bilaterally Cardio Palpation: normal PMI Heart sounds: S1 normal heart sound present, S2 normal heart sound present, no gallops, no murmurs and no rubs GI Palpation (GI): Soft to palpation Back/Spine/Pelvis Other: unremarkable Skin General skin exam: no rashes or lesions noted Neuro General: patient oriented x3 Extrem Other: Trace to 1+ edema General: Yes normal to inspection Psych Mental Status: mental status grossly normal Assessment & Plan Assessment & Plan (1) Chronic combined systolic and diastolic CHF (congestive heart failure): Code(s): I50.42 - Chronic combined systolic (congestive) and diastolic (congestive) heart failure Category: Medical Plan: In the most recent echocardiogram, severely depressed LVEF of 10-15%. Moderate diastolic dysfunction. Clinically, NYHA class 2 symptoms. With regard to medications, on Coreg, Entresto, Farxiga, diuretics. As he is complaining of some dizziness, advised him to hold diuretics for couple of days and then we can go down on the Bumex dose to 2 mg b.i.d.. Check BNP/BMP. (2) Atherosclerotic cardiovascular disease: Comment: Cardiac catheterization from 2018-mild LAD disease but otherwise unremarkable. Code(s): I25.10 - Atherosclerotic heart disease of [place] coronary artery without angina pectoris Category: Medical Plan: Cardiac catheterization 2018 with mild LAD disease. No specific management. (3) Essential hypertension: Code(s): I10 - Essential (primary) hypertension Category: Medical Plan: Stable. No changes. (4) Cocaine use: Code(s): F14.90 - Cocaine use, unspecified, uncomplicated Category: Social Hx Plan: Per patient, has not been using any drugs recently. (5) ICD (implantable cardioverter-defibrillator) in place: Code(s): Z95.810 - Presence of automatic (implantable) cardiac defibrillator Category: Medical Plan: Being followed remotely. Orders: Orders B Type Natriuretic Peptide 3 Weeks I50.9 - Heart failure, unspecified Basic Metabolic Panel 3 Weeks I50.42 - Chronic combined systolic (congestive) and diastolic (congestive) heart failure Coding Level of Care Code Est Pt Level 4 (67994) Diagnoses Chronic combined systolic and diastolic CHF (congestive heart failure) I50.42 Atherosclerotic cardiovascular disease I25.10 Essential hypertension I10 Cocaine use F14.90 ICD (implantable cardioverter-defibrillator) in place Z95.810
== END 2024-08-14 14:54 | disposition home or self-care (01) ==
PROVIDERS: PCP Internal Medicine; Referring Provider Internal Medicine; Visit Provider Internal Medicine
DX: I50.42 Chronic combined systolic (congestive) and diastolic (congestive) heart failure (principal); I25.10 Atherosclerotic heart disease of native coronary artery without angina pectoris; I10 Essential (primary) hypertension; F14.90 Cocaine use, unspecified, uncomplicated; Z95.810 Presence of automatic (implantable) cardiac defibrillator
CPT/HCPCS: 99214

== ENCOUNTER → 2024-08-14 14:26 | Outpatient (BNVA) | payer OTHER, SELFPAY | PROVIDERS: PCP Internal Medicine; Visit Provider Internal Medicine | DX: I11.0 Hypertensive heart disease with heart failure (principal); I50.42 Chronic combined systolic (congestive) and diastolic (congestive) heart failure; I25.10 Atherosclerotic heart disease of native coronary artery without angina pectoris; F14.90 Cocaine use, unspecified, uncomplicated; Z95.810 Presence of automatic (implantable) cardiac defibrillator | CPT/HCPCS: 99212 ==

== ENCOUNTER → 2024-09-18 23:59 | Outpatient (BNV) | payer OTHER, SELFPAY ==
--- NOTE | 2024-09-23 11:48 | A.OFFVIS_ITS ---
Intake Visit Reasons: Remote ICD Check- [facility] Allergies No Known Allergies Allergy (Verified 08/06/23 13:50) [facility] Medical History (Updated 05/16/22 @ 15:09 by Chao Mcdonough MD) Essential hypertension Chronic combined systolic and diastolic CHF (congestive heart failure) Pulmonary hypertension Atherosclerotic cardiovascular disease Gout Heart failure Surgical History History of implantable cardioverter-defibrillator (ICD) placement (~11/04/21) Family History Father No problems noted. Mother No problems noted. Social History Household Members: Spouse Housing: House Do you presently have visiting nurse or other home services: No Alcohol intake: current Alcohol intake frequency: a few times a week Patient Tobacco Use Status: Former Tobacco user Substance Use Type: Crack/Cocaine service: No Current occupational status: employed Office Procedures Cardiac Device Check Cardiac Device Check Details: Date of service 09/18/2024; Battery life >7 years; normal lead parameters; no treated VT/VF; SVT episodes/NSVT- last in march 2024; normal ICD function. [id number] Cardiac Interrogation, implant defibrillator w/interim Procedure code (CPT) selection complete Assessment & Plan Assessment & Plan (1) ICD (implantable cardioverter-defibrillator) in place: Code(s): Z95.810 - Presence of automatic (implantable) cardiac defibrillator Category: Medical (2) Chronic combined systolic and diastolic CHF (congestive heart failure): Code(s): I50.42 - Chronic combined systolic (congestive) and diastolic (congestive) heart failure Category: Medical Plan x Coding Level of Care Code Procedure Only Diagnoses ICD (implantable cardioverter-defibrillator) in place Z95.810 Chronic combined systolic and diastolic CHF (congestive heart failure) I50.42 CPT Codes Cardiac Device Check - Cardiac Device 13: [id number] Cardiac Interrogation, implant defibrillator w/interim ([id number])
== END ==
PROVIDERS: PCP Internal Medicine; Visit Provider Internal Medicine
DX: I50.42 Chronic combined systolic (congestive) and diastolic (congestive) heart failure (principal); Z95.810 Presence of automatic (implantable) cardiac defibrillator
CPT/HCPCS: 93295

== ENCOUNTER 2024-10-16 10:16 | Outpatient (REF) | payer OTHER, SELFPAY ==
[2024-10-16 10:36] LABS: MANUAL DIFF FLAG NO
[2024-10-16 11:07] LABS: Basophils Percent Auto 0.1 % (0-2); Hematocrit 45.1 % (42.0-52.0); Hemoglobin 15.5 g/dl (14.0-18.0); Imm Gran Abs Auto 0.06 X10*3/uL (0.00-0.03); Imm Gran Pct Auto 0.4 % (0.0-0.4); Lymphocytes Absolute Auto 0.7 X10*3/uL (1.2-4.9); Lymphocytes Percent Auto 4.9 % (20-40); Mean Corpuscular HGB Conc 34.4 g/dl (31.0-36.0); Mean Corpuscular Hemoglobin 30.8 pg (27.0-33.0); Mean Corpuscular Volume 89.5 fL (80.0-98.0); Monocytes Absolute Auto 0.8 X10*3/uL (0.1-1.2); Monocytes Percent Auto 5.6 % (2-11); Neutrophils Absolute Auto 12.4 x10*3/uL (2.0-8.3); Platelet Count 295 X10*3/uL (160-400); Red Blood Count 5.04 X10*6/uL (4.60-5.80)
[2024-10-16 12:21] LABS: Alanine Aminotransferase 10 U/L (0-40); Albumin Level 3.7 g/dL (3.5-5.0); Anion Gap 11 (12-20); Aspartate Amino Transferase 15 U/L (5-37); Bilirubin Total 0.7 mg/dL (0.0-1.0); Blood Urea Nitrogen 21 mg/dL (9-16); C Reactive Protein 7.88 mg/dL (< or = 0.50); Calcium 9.2 mg/dL (8.4-10.2); Carbon Dioxide 26 mmol/L (22-29); Chloride 107 mmol/L (96-108); Estimated Glomerular Filt Rate > 60; Glucose Random 130 mg/dL (60-115); Potassium 4.2 mmol/L (3.3-5.1); Sodium 140 mmol/L (135-145); Total Protein 7.5 g/dL (6.5-8.0); Uric Acid 6.2 mg/dL (3.4-7.0)
[2024-10-16 12:52] LABS: Alkaline Phosphatase 96 U/L (39-117)
== END 2024-10-16 10:17 | disposition home or self-care (01) ==
LOC: HO.LAB 10:16
PROVIDERS: Absent Provider Internal Medicine; PCP Internal Medicine; Visit Provider Internal Medicine
DX: M10.9 Gout, unspecified (principal); N18.9 Chronic kidney disease, unspecified
CPT/HCPCS: 36415; 80053; 84550; 85025; 86140

== ENCOUNTER 2024-12-04 08:43 | Outpatient (REF) | payer OTHER, SELFPAY ==
--- NOTE | ~2024-12-04 | XR_ITS ---
CLINICAL HISTORY: M17.11 - Unilateral primary osteoarthritis, right knee 2 view right knee Comparison: None Findings: Osteopenia. No acute fracture. Moderate tricompartmental osteoarthritis with joint space narrowing. No joint effusion. No radiopaque foreign body. Diffuse soft tissue edema. Vascular calcifications. IMPRESSION: Chronic changes without acute fracture. This document has been electronically signed by: Gerson Hardwick MD on 12/06/2024 03:53:55
--- NOTE | ~2024-12-04 | XR_ITS ---
CLINICAL HISTORY: M25.562 - Pain in left knee AP Bilateral Knees Standing, 2 view left knee Comparison: DX - XR KNEE RT 3V - 12/04/24 11:12 EST Findings: Osteopenia. Severe tricompartmental osteoarthritis with joint space narrowing large marginal osteophytes. No joint effusion. No radiopaque foreign body. Vascular calcifications with scattered clips along the soft tissues posteriorly. Anterior soft tissue swelling. IMPRESSION: Chronic changes without acute fracture. This document has been electronically signed by: Gerson Hardwick MD on 12/06/2024 03:58:04
--- OUTSIDE RECORDS SUMMARY | 2024-12-04 09:21 | XMS_ITS | Clinical Summary ---
Author Organization [facility] Facility Address [address] [place] [address], [place] [address] Care Team Providers Care Anodic Treater Name Role Phone Mj Linder MD Primary Care Provider [phone] Allergies Active Allergy Reactions Criticality Noted Date Comments Codeine 04/10/2023 Medications allopurinol (ZYLOPRIM) 300 MG tablet Take 300 mg by mouth 05/08/2018 Active carvedilol (COREG) 12.5 MG tablet Take 25 mg by mouth 11/04/2021 Active sacubitril-vals jos (Entresto) 49-51 MG per tablet Take 1 tablet by mouth 11/04/2021 Active predniSONE (DELTASONE) 20 MG tablet Take 20 mg by mouth 08/29/2023 Active bumetanide (BUMEX) 1 MG tablet Take 1 mg by mouth in the morning and 1 mg in the evening. 3 tabs 2 time a day . Active Active Problems Problem Noted Date Diagnosed Date Stage 3b chronic kidney disease 09/04/2023 Congestive heart failure, NYHA Class II 09/04/20 23 Gout 09/04/2023 Immunizations Name Administration Dates Next Due Pneumococcal Polysaccharide 05/09/2018 Family History Medical History Relation Comments Hypertension Father Hypertension Mother Relation Status Comments Father Mother Social History Tobacco Use Types Packs/Day Years Used Date Smoking Tobacco: Never Smokeless Tobacco: Never Tobacco Cessation:Counseling Given: Not Answered Alcohol Use Standard Drinks/Week Comments Yes 0 (1 standard drink = 0.6 oz pur e alcohol) Sex and Gender Information Value Date Recorded Sex Assigned at Not on file Legal Sex Male 11:03 AM EDT Gender Identity Not on file Sexual Orientation Not on file Last Filed Vital Signs Vital Sign Reading Time Taken Comments Blood Pressure 118/63 09/04/2023 3:34 PM EST Pulse 84 09/04/2023 3:34 PM EST Temperature - - Respiratory Rate - - Oxygen Saturation 95% 09/04/2023 3:34 PM EST Inhaled Oxygen Concentration - - Weight 103 kg (227 lb 6.4 oz) 09/04/2023 3:34 PM EST Height - - Body Mass Index - - Plan of Treatment Health Maintenance Due Date Last Done Comments Hepatitis B Vaccine (1 of 3 - 19+ 3-dose series) 09/05 Colorectal Cancer Screening: Annual FOBT 2018 Colorectal Cancer Screening: Colonoscopy 2018 Colorectal Cancer Screening: Sigmoidoscopy 2018 Pneumococcal Vaccine: Pediat rics (0 to 5 Years) and At-Risk Patients (6 to 64 Years) (2 of 2 - PCV) 05/09/2019 05/09/2018 Influenza Vaccine (#1) 2024 Insurance [place] Care Teams Anodic Treater Relationship Specialty Start Date End Date Mj Linder MD [address] [place] [address] [id number] LEE HERNANDEZ PCP - General Internal Medicine 12/25/22
== END 2024-12-04 08:44 | disposition home or self-care (01) ==
LOC: HO.HOSX 08:43
PROVIDERS: Visit Provider Physician Assistant
DX: M17.0 Bilateral primary osteoarthritis of knee (principal)
CPT/HCPCS: 73562; 99202

== ENCOUNTER 2024-12-04 11:07 | Outpatient (AMB) | payer OTHER, SELFPAY ==
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
[2024-12-04 11:25] VITALS: BMI 36.0
--- OUTSIDE RECORDS SUMMARY | 2024-12-04 13:35 | XMS_ITS | Clinical Summary ---
Author Organization [facility] Facility Address [address] [place] [address], [place] [address] Care Team Providers Care Generalist Name Role Phone Mj Linder MD Primary Care Provider [phone] Allergies Active Allergy Reactions Criticality Noted Date [...] Insurance [place] [employer] [employer] Care Teams Generalist Relationship Specialty Start Date End Date Mj Linder MD [address] [place] [address] [id number] LEE HERNANDEZ PCP - General Internal Medicine 12/25/22
== END 2024-12-04 12:03 | disposition home or self-care (01) ==
PROVIDERS: PCP Internal Medicine; Visit Provider Physician Assistant
DX: M17.0 Bilateral primary osteoarthritis of knee (principal)
CPT/HCPCS: 99203

== ENCOUNTER → 2024-12-04 11:12 | Outpatient (BNV) | payer OTHER, SELFPAY | PROVIDERS: Visit Provider Radiology Diagnostic Radiology | DX: M25.562 Pain in left knee (principal); M17.11 Unilateral primary osteoarthritis, right knee | CPT/HCPCS: 73562 ==

== ENCOUNTER → 2024-12-18 23:59 | Outpatient (BNV) | payer OTHER, SELFPAY ==
--- NOTE | 2024-12-29 21:25 | A.OFFVIS_ITS ---
Intake Visit Reasons: Remote ICD Check- [facility] Allergies No Known Allergies Allergy (Verified 12/04/24 11:31) [facility] Medical History (Updated 12/04/24 @ 13:02 by Lora Wilson PA-C) Essential hypertension Chronic combined systolic and diastolic CHF (congestive heart failure) Pulmonary hypertension Atherosclerotic cardiovascular disease Gout Heart failure Surgical History History of implantable cardioverter-defibrillator (ICD) placement (~11/04/21) Family History Father No problems noted. Mother No problems noted. Social History (Updated 12/04/24 @ 11:29 by DOMINIQUE An) Household Members: Spouse Housing: House Do you presently have visiting nurse or other home services: No Alcohol intake: current Alcohol intake frequency: a few times a week Patient Tobacco Use Status: Former Tobacco user Substance Use Type: Crack/Cocaine service: No Current occupational status: unemployed Office Procedures Cardiac Device Check Cardiac Device Check Details: Date of service 12/18/2024; Battery life >7years; normal lead parameters; no treated VT/VF; normal ICD function. [id number] Cardiac Interrogation, implant defibrillator w/interim Procedure code (CPT) selection complete Assessment & Plan Assessment & Plan (1) ICD (implantable cardioverter-defibrillator) in place: Code(s): Z95.810 - Presence of automatic (implantable) cardiac defibrillator Category: Medical (2) Chronic combined systolic and diastolic CHF (congestive heart failure): Code(s): I50.42 - Chronic combined systolic (congestive) and diastolic (congestive) heart failure Category: Medical Plan x Coding Level of Care Code Procedure Only Diagnoses ICD (implantable cardioverter-defibrillator) in place Z95.810 Chronic combined systolic and diastolic CHF (congestive heart failure) I50.42 CPT Codes Cardiac Device Check - Cardiac Device 13: [id number] Cardiac Interrogation, implant defibrillator w/interim ([id number])
== END ==
PROVIDERS: PCP Internal Medicine; Visit Provider Internal Medicine
DX: I50.42 Chronic combined systolic (congestive) and diastolic (congestive) heart failure (principal); Z95.810 Presence of automatic (implantable) cardiac defibrillator
CPT/HCPCS: 93295

== ENCOUNTER 2025-03-05 13:55 | Outpatient (AMB) | payer MEDICAID, SELFPAY ==
[2025-03-05 14:15] VITALS: BP 124/68; PULSE 91; BMI 37.4
--- NOTE | 2025-03-05 14:15 | A.OFFVIS_ITS ---
Vital Signs 03/05/25 14:15 Height 5 ft 6 in Weight 231 lb 7.766 oz BMI 37.4 BP 124/68 Blood Pressure Location Lt brachial Position Sitting Pulse 91 Pulse Source Monitor Intake Visit Reasons: 6 mth f/up r/s 02-11-2025 Allergies No Known Allergies Allergy (Verified 12/04/24 11:31) Medication List - Last Reconciled 03/05/25 by Chao Mcdonough MD allopurinol 300 mg PO DAILY bumetanide 3 mg (3 x 1 mg) PO BID 90 days carvedilol (Coreg) 25 mg PO BID 90 days dapagliflozin propanediol (Farxiga) 10 mg PO DAILY sacubitril-valsartan 49-51 mg (Entresto) 1 tab PO BID HPI Comments Details: Dom returns for follow-up regarding cardiomyopathy. For the most part, he states he is doing okay. His breathing is generally well controlled. No clear symptoms like angina or in fact anything else of concern. He states he is taking all his medications. [facility] Medical History (Updated 12/04/24 @ 13:02 by Lora Wilson PA-C) Essential hypertension Chronic combined systolic and diastolic CHF (congestive heart failure) Pulmonary hypertension Atherosclerotic cardiovascular disease Gout Heart failure Surgical History History of implantable cardioverter-defibrillator (ICD) placement (~11/04/21) Family History Father No problems noted. Mother No problems noted. Social History (Updated 12/04/24 @ 11:29 by DOMINIQUE An) Household Members: Spouse Housing: House Do you presently have visiting nurse or other home services: No Alcohol intake: current Alcohol intake frequency: a few times a week Patient Tobacco Use Status: Former Tobacco user Substance Use Type: Crack/Cocaine service: No Current occupational status: unemployed Review of Systems Const Denies weakness ENT Denies dizziness Card Denies chest pain, Denies chest pain with activity, Denies syncope, Denies rapid heart rate, Denies pedal edema, Denies edema, Denies leg edema, Denies lightheadedness, Denies palpitations, Denies dyspnea, Denies dyspnea on exertion and Denies orthopnea Resp Denies cough, Denies dyspnea and Denies dyspnea on exertion GI Denies hematochezia and Denies change in stool character Musc Denies abnormal gait, Denies muscle cramps, Denies muscle weakness, Denies numbness, Denies radiating pain into limb and Denies tingling Neuro Denies abnormal gait, Denies dizziness, Denies syncope, Denies numbness, Denies tingling and Denies weakness Endo Denies palpitations Physical Exam Vital Signs: Last Vital Signs Pulse 91 03/05/25 14:15 BP 124/68 03/05/25 14:15 BMI result Body Mass Index 37.4 Const General: comfortable and no acute distress Orientation/consciousness: patient oriented x3 HEENT Other: Unremarkable Head: Yes normal to inspection Neck Neck: Yes normal visual inspection Chest Chest palpation & inspection: normal inspection of the chest Resp Auscultation: clear to auscultation bilaterally Cardio Palpation: normal PMI Heart sounds: S1 normal heart sound present, S2 normal heart sound present, no gallops, no murmurs and no rubs GI Palpation (GI): Soft to palpation Back/Spine/Pelvis Other: unremarkable Skin General skin exam: no rashes or lesions noted Neuro General: patient oriented x3 Extrem General: Yes normal to inspection Psych Mental Status: mental status grossly normal Office Procedures EKG Details: EKG with underlying sinus rhythm at 91/Min; inferior and anterolateral T inversions. [id number], Complete Assessment & Plan Assessment & Plan (1) Chronic combined systolic and diastolic CHF (congestive heart failure): Code(s): I50.42 - Chronic combined systolic (congestive) and diastolic (congestive) heart failure Category: Medical Plan: In the last echocardiogram, severely depressed LVEF of 10-15%. Moderate diastolic dysfunction. Clinically, NYHA class 2 symptoms. He remains on Coreg, Entresto, Farxiga, diuretics. Check labs. We could possibly add spironolactone which will complete his GDMT. However, he has generally been stable without any hospitalizations. (2) Atherosclerotic cardiovascular disease: Comment: Cardiac catheterization from 2018-mild LAD disease but otherwise unremarkable. Code(s): I25.10 - Atherosclerotic heart disease of elem coronary artery without angina pectoris Category: Medical Plan: Cardiac catheterization 2018 with mild LAD disease. No specific management. (3) Essential hypertension: Code(s): I10 - Essential (primary) hypertension Category: Medical Plan: Stable. No changes. (4) Cocaine use: Code(s): F14.90 - Cocaine use, unspecified, uncomplicated Category: Social Hx Plan: Per patient, has not been using any drugs recently. (5) ICD (implantable cardioverter-defibrillator) in place: Code(s): Z95.810 - Presence of automatic (implantable) cardiac defibrillator Category: Medical Plan: We will recheck with next visit. Being followed remotely. Plan Discussion Notes I discussed the need for comprehensive blood work to evaluate the cause of pulmonary symptoms and ensure the current treatment aligns with his cardiac status. We reviewed the current medication regimen, finding it sufficient without additional prescriptions. I advised maintaining certain sleep positions to alleviate disturbances. I emphasized the importance of scheduled ICD checks in six months to ensure device function, clarifying any follow-up requirements. The patient appears understanding of the plan with no contraindications expressed. Patient was informed and verbally consented to the use of an ambient scribe for clinic note documentation during this visit. Patient Instructions: - Follow up with blood work as soon as possible. - Sleep on your side if it helps with breathing at night. - Keep your ICD check-up appointment in six months. Coding Level of Care Code Est Pt Level 4 (26584) Complex EM visit Add On G2211 Diagnoses Chronic combined systolic and diastolic CHF (congestive heart failure) I50.42 Atherosclerotic cardiovascular disease I25.10 Essential hypertension I10 Cocaine use F14.90 ICD (implantable cardioverter-defibrillator) in place Z95.810 CPT Codes EKG - CPT: 96398-[id number], Complete ([id number])
--- OUTSIDE RECORDS SUMMARY | 2025-03-05 16:29 | XMS_ITS | Clinical Summary ---
Author Organization [facility] Address [address] [facility] [address] [place] [address] Care Team Providers Care Multi Media Specialist Name Role Phone Unavailable Primary Care Provider Unavailabl e Encounters Date Type Department Care Team Description 02/12/2025 Population Health Risk Score [facility] (C3) Department [address] [facility] [address] [place] [id number] Provider, Population Health Generic 02/09/2025 Travel from Last 3 Months Social History Tobacco Use Types Packs/Day Years Used Date Smoking Tobacco: Never Assessed Sex and Gender Information Value Date Recorded Sex Assigned at Male 02/02/2025 4:51 PM EDT Legal Sex Male 4:50 PM EDT Gender Identity Not on file Sexual Orientation Not on file Plan of Treatment Health Maintenance Due Date Last Done Comments CT Colonography 1969 Colonoscopy 1969 Colorectal Cancer Screening 1969 Depression Screening 1969 FIT DNA/Cologuard 1969 FIT 1969 FOBT 1969 HIV Screening 1969 Lipid Panel 1969 SDOH Screening 1969 Sigmoidoscopy 1969 Disability Screening 1969 Alcohol/Substance Use Screening 1981 Tobacco Screening 1981 Hepatitis C Screening 1987 DTaP/Tdap/Td Vaccines (1 - Tdap) 1988 Hepatitis B Vaccines (1 of 3 - 19+ 3-dose series) 1988 Pneumococcal Vaccine: 50+ Years (1 of 1 - PCV) 2019 Zoster Vaccines (1 of 2) 2019 COVID-19 Vaccine ( - season) 2024 08/12/2022, 10/20/2021, 01/25/2021, Additional history exists Influenza Vaccine (Season Ended) 2025 08/12/2022 RSV Patients and Patients Aged 60 years or older (1 - 1-dose 75+ series) 2044 HIB Vaccines Aged Out No longer eligi ble based on patient's age to complete this topic HPV Vaccines Aged Out No longer eligi ble based on patient's age to complete this topic Hepatitis A Vaccines Aged Out No long er eligible based on patient's age to complete this topic IPV Vaccines Aged Out No longer eligi ble based on patient's age to complete this topic Meningococcal B Vaccine Aged Out No l onger eligible based on patient's age to complete this topic Meningococcal Vaccine Aged Out No caro trudy eligible based on patient's age to complete this topic RSV under 20 months Aged Out No longe r eligible based on patient's age to complete this topic Rotavirus Vaccines Aged Out No longer eligible based on patient's age to complete this topic
== END 2025-03-05 14:39 | disposition home or self-care (01) ==
PROVIDERS: Visit Provider Internal Medicine
DX: I50.42 Chronic combined systolic (congestive) and diastolic (congestive) heart failure (principal); I25.10 Atherosclerotic heart disease of native coronary artery without angina pectoris; I10 Essential (primary) hypertension; F14.90 Cocaine use, unspecified, uncomplicated; Z95.810 Presence of automatic (implantable) cardiac defibrillator
CPT/HCPCS: 93010; 99214

== ENCOUNTER → 2025-03-05 13:55 | Outpatient (BNVA) | payer MEDICAID, SELFPAY | PROVIDERS: PCP Internal Medicine; Visit Provider Internal Medicine | DX: I11.0 Hypertensive heart disease with heart failure (principal); I50.42 Chronic combined systolic (congestive) and diastolic (congestive) heart failure; I25.10 Atherosclerotic heart disease of native coronary artery without angina pectoris; F14.20 Cocaine dependence, uncomplicated; Z87.891 Personal history of nicotine dependence; Z95.810 Presence of automatic (implantable) cardiac defibrillator | CPT/HCPCS: 93005; 99212 ==

== ENCOUNTER → 2025-03-19 23:59 | Outpatient (BNV) | payer MEDICAID, SELFPAY ==
--- NOTE | 2025-03-22 09:42 | A.OFFVIS_ITS ---
Intake Visit Reasons: Remote ICD check- [facility] Allergies No Known Allergies Allergy (Verified 12/04/24 11:31) [facility] Medical History (Updated 12/04/24 @ 13:02 by Lora Wilson PA-C) Essential hypertension Chronic combined systolic and diastolic CHF (congestive heart failure) Pulmonary hypertension Atherosclerotic cardiovascular disease Gout Heart failure Surgical History History of implantable cardioverter-defibrillator (ICD) placement (~11/04/21) Family History Father No problems noted. Mother No problems noted. Social History (Updated 12/04/24 @ 11:29 by DOMINIQUE An) Household Members: Spouse Housing: House Do you presently have visiting nurse or other home services: No Alcohol intake: current Alcohol intake frequency: a few times a week Patient Tobacco Use Status: Former Tobacco user Substance Use Type: Crack/Cocaine service: No Current occupational status: unemployed Office Procedures Cardiac Device Check Cardiac Device Check Details: Date of service 03/19/2025; Battery life >7years; normal lead parameters; no treated VT/VF; normal ICD function. [id number] Cardiac Interrogation, implant defibrillator w/interim Procedure code (CPT) selection complete Assessment & Plan Assessment & Plan (1) ICD (implantable cardioverter-defibrillator) in place: Code(s): Z95.810 - Presence of automatic (implantable) cardiac defibrillator Category: Medical (2) Chronic combined systolic and diastolic CHF (congestive heart failure): Code(s): I50.42 - Chronic combined systolic (congestive) and diastolic (congestive) heart failure Category: Medical Plan x Coding Level of Care Code Procedure Only Diagnoses ICD (implantable cardioverter-defibrillator) in place Z95.810 Chronic combined systolic and diastolic CHF (congestive heart failure) I50.42 CPT Codes Cardiac Device Check - Cardiac Device 13: [id number] Cardiac Interrogation, implant defibrillator w/interim ([id number])
== END ==
PROVIDERS: Visit Provider Internal Medicine
DX: I50.42 Chronic combined systolic (congestive) and diastolic (congestive) heart failure (principal); Z95.810 Presence of automatic (implantable) cardiac defibrillator
CPT/HCPCS: 93295

== ENCOUNTER 2025-03-20 13:12 | Outpatient (REF) | payer MEDICAID, SELFPAY ==
--- OUTSIDE RECORDS SUMMARY | 2025-03-20 13:15 | XMS_ITS | Clinical Summary ---
[facility] Facility Address [address] [place] [address], [place] [address] Care Team Providers Care Upholstery Tech Name Role Phone Mj Linder MD Primary Care Provider [phone] Allergies Active Allergy Reactions Criticality Noted Date [...] Class II 09/04/20 23 Gout 09/04/2023 Immunizations Immunization Administration Dates Next Due Pneumococcal Polysaccharide 05/09/2018 [...] Colorectal Cancer Screening: Sigmoidoscopy 2018 Pneumococcal Vaccine: 50+ Years (2 of 2 - PCV) 019 05/09/2018 Influenza Vaccine (Season Ended) 2025 Pneumococcal Vaccine: Peds ( 0 to 5 Years) and At-Risk Patients (6 to 49 Years) Discontinued 05/09/2018 Insurance [place] Care Teams Upholstery Tech Relationship Specialty Start Date End Date Croke, Mj, MD [id number] LEE HERNANDEZ PCP - General Internal Medicine 12/25/22
[2025-03-20 14:02] LABS: B Type Natriuretic Peptide 107 pg/mL (<100)
[2025-03-20 14:03] LABS: Anion Gap 10 (12-20); Blood Urea Nitrogen 49 mg/dL (9-16); Calcium 9.1 mg/dL (8.4-10.2); Carbon Dioxide 35 mmol/L (22-29); Chloride 99 mmol/L (96-108); Estimated Glomerular Filt Rate 43; Glucose Random 116 mg/dL (60-115); Potassium 5.4 mmol/L (3.3-5.1); Sodium 139 mmol/L (135-145)
== END 2025-03-20 13:13 | disposition home or self-care (01) ==
LOC: HO.LAB 13:12
PROVIDERS: Visit Provider Internal Medicine
DX: I50.42 Chronic combined systolic (congestive) and diastolic (congestive) heart failure (principal)
CPT/HCPCS: 36415; 80048; 83880

== ENCOUNTER → 2025-06-18 23:59 | Outpatient (BNV) | payer MEDICAID, SELFPAY ==
--- NOTE | 2025-06-22 08:22 | MHC.OFFVIS ---
Intake Visit Reasons: Remote ICD check- [facility] Allergies No Known Allergies Allergy (Verified 12/04/24 11:31) [facility] Medical History (Updated 12/04/24 @ 13:02 by Lora Wilson PA-C) Essential hypertension Chronic combined systolic and diastolic CHF (congestive heart failure) Pulmonary hypertension Atherosclerotic cardiovascular disease Gout Heart failure Surgical History History of implantable cardioverter-defibrillator (ICD) placement (~11/04/21) Family History Father No problems noted. Mother No problems noted. Social History (Updated 12/04/24 @ 11:29 by DOMINIQUE An) Household Members: Spouse Housing: House Do you presently have visiting nurse or other home services: No Alcohol intake: current Alcohol intake frequency: a few times a week Patient Tobacco Use Status: Former Tobacco user Substance Use Type: Crack/Cocaine service: No Current occupational status: unemployed Office Procedures Cardiac Device Check Cardiac Device Check Details: Date of service 06/18/2025; Battery life 7 years; normal lead parameters; no treated VT/VF; non-sustained episodes; normal ICD function. [id number] Cardiac Interrogation, implant defibrillator w/interim Procedure code (CPT) selection complete Assessment & Plan Assessment & Plan (1) ICD (implantable cardioverter-defibrillator) in place: Code(s): Z95.810 - Presence of automatic (implantable) cardiac defibrillator Category: Medical (2) Chronic combined systolic and diastolic CHF (congestive heart failure): Code(s): I50.42 - Chronic combined systolic (congestive) and diastolic (congestive) heart failure Category: Medical Plan x Coding Level of Care Code Procedure Only Diagnoses ICD (implantable cardioverter-defibrillator) in place Z95.810 Chronic combined systolic and diastolic CHF (congestive heart failure) I50.42 CPT Codes Cardiac Device Check - Cardiac Device 13: [id number] Cardiac Interrogation, implant defibrillator w/interim ([id number])
== END ==
PROVIDERS: Visit Provider Internal Medicine
DX: I50.42 Chronic combined systolic (congestive) and diastolic (congestive) heart failure (principal); Z95.810 Presence of automatic (implantable) cardiac defibrillator
CPT/HCPCS: 93295

== ENCOUNTER → 2025-09-22 08:56 | Outpatient (BNV) | payer MEDICAID, SELFPAY | PROVIDERS: Visit Provider Internal Medicine | DX: I50.42 Chronic combined systolic (congestive) and diastolic (congestive) heart failure (principal) | CPT/HCPCS: 93295 ==